=== PATIENT | female | born 1940 | race American Indian/Alaskan Native ===

== ENCOUNTER 2017-01-25 06:30 | Inpatient (IN) | payer MEDICARE ==
[2017-01-22 13:35] VITALS: BMI 23.1
[2017-01-25] MEDS ORDERED: Etomidate 20 mg/10ml Inj IV ONE (07:11)
[2017-01-25] MEDS ORDERED: Succinylcholine 200 mg/10 ml Inj IV ONE (07:11)
[2017-01-25] MEDS ORDERED: Propofol 10 mg/ml Inj (20 ML) ONE (07:11)
--- NOTE | 2017-01-25 07:16 | CP.PCM.HP ---
History of Present Illness - History of Present Illness History of Present Illness: Chief Complaint: severe left hip pain HPI: 76 y/o lady with hx of HTN, Chronic Anemia, CKD Stage III, Renal Stone, Primary OA with hx of Bilat TKR came in for scheduled Left Hip replacement. The patient has had long history of Oseteoarthritis and had Bilat Knee replacement because of this. She has been suffering from severe left hip pain for the past 4 years and has been ambulating with the help of a cane . She had several intra-articular injections and has been seeing a Pain Mgt specialist for her pain. The past few months , her hip pain worsened and despite being on Duragesic patch 75mg, she is still unable to ambulate because of the pain and unable to do most of her daily chores. She went to see Dr Alarcon , imagings were done revealing severe OA . Having failed conservative management, she was advised to have a THR. Patient was worked out pre-op by her PMD as outpt - clearance in the chart. Full COde Surrogate Decision maker: daughter Sasha Present on Admission - Present on Admission Any Indicators Present on Admission: No Review of Systems - Review of Systems All systems: reviewed and no additional remarkable complaints except - Constitutional Constitutional: absent: Fever, Headache - EENT Eyes: Blurred Vision Ears: absent: Ear Discharge, Ear Pain Nose/Mouth/Throat: absent: Nasal Congestion, Nasal Discharge - Cardiovascular Cardiovascular: Edema. absent: Chest Pain, Dyspnea on Exertion - Respiratory Respiratory: absent: Cough, Dyspnea, Dyspnea on Exertion - Gastrointestinal Gastrointestinal: absent: Abdominal Pain, Melena, Nausea, Vomiting - Genitourinary Genitourinary: Hx Renal/Bladder Calculi. absent: Dysuria - Reproductive: Female Reproductive:Female: S/P Hysterectomy - Musculoskeletal Musculoskeletal: Abnormal Gait, Arthralgias, Back Pain, Joint Swelling, Limited Range of Motion, Muscle Cramps - Integumentary Integumentary: absent: Pruritus, Rash, Unusual Bruising - Neurological Neurological: absent: Confusion, Dizziness, Numbness, Headaches - Psychiatric Psychiatric: absent: Depression - Endocrine Endocrine: absent: Polydipsia, Polyphagia, Polyuria - Hematologic/Lymphatic Hematologic: absent: Easy Bleeding, Easy Bruising Past Patient History - Infectious Disease Hx of Infectious Diseases: None - Tetanus Immunizations Tetanus Immunization: Unknown - Past Medical History & Family History Past Medical History?: Yes Past Family History: Reviewed and not pertinent - Past Social History Smoking Status: Never Smoked Chewing Tobacco Use: No Cigar Use: No Alcohol: None Drugs: Denies Home Situation {Lives}: Alone Domestic Violence: Negative - CARDIAC Hx Cardiac Disorders: Yes Hx Hypertension: Yes - PULMONARY Hx Respiratory Disorders: No - NEUROLOGICAL Hx Neurological Disorder: No - HEENT Hx HEENT Problems: Yes Hx Cataracts: Yes - RENAL Hx Chronic Kidney Disease: Yes Hx Kidney Stones: Yes (LEFT) - ENDOCRINE/METABOLIC Hx Endocrine Disorders: No - HEMATOLOGICAL/ONCOLOGICAL Hx Blood Disorders: Yes Hx Anemia: Yes (B12 SHOT ONCE A MONTH) - INTEGUMENTARY Hx Dermatological Problems: No - MUSCULOSKELETAL/RHEUMATOLOGICAL Hx Musculoskeletal Disorders: Yes Hx Arthritis: Yes Hx Back Pain: Yes Hx Osteoarthritis: Yes Hx Rheumatoid Arthritis: Yes Other/Comment: MUSCLE WEAKNESS .LIMIT JOINT MOTION - GASTROINTESTINAL Hx Gastrointestinal Disorders: Yes Hx Gastroesophageal Reflux: Yes (GERD) - GENITOURINARY/GYNECOLOGICAL Hx Genitourinary Disorders: Yes (Hysterectomy,Renal Stone) - PSYCHIATRIC Hx Psychophysiologic Disorder: No - SURGICAL HISTORY Hx Surgeries: Yes Hx Hysterectomy: Yes Hx Joint Replacement: Yes (BOTH KNEE REPLACEMENT) Hx Musculoskeletal Surgery: Yes (BILATERAL BUNION Sx) Other/Comment: Small Intestine Obstruction and Surger 1996. REMOVAL LEFT KIDNEY STONE . Bilat TKR , REVISION RIGHT KNEE X3. INSERTION CANDIDO CATH AND REMOVAL - ANESTHESIA Hx Anesthesia: Yes Hx Anesthesia Reactions: No Hx Malignant Hyperthermia: No Has any member of the family had a problem w/ anesthesia?: No Meds Allergies/Adverse Reactions: Allergies Allergy/AdvReac Type Severity Reaction Status Date / Time acetaminophen [From Percocet] AdvReac PALPITAION Verified 01/22/17 13:36 oxycodone HCl [From Percocet] AdvReac PALPITAION Verified 01/22/17 13:36 GRAVY AdvReac DIARRHEA Uncoded 01/22/17 13:37 Physical Exam - Constitutional Appears: No Acute Distress - Head Exam Head Exam: NORMAL INSPECTION, NORMOCEPHALIC - Eye Exam Eye Exam: EOMI, Normal appearance Pupil Exam: NORMAL ACCOMODATION - ENT Exam ENT Exam: Mucous Membranes Moist, Normal External Ear Exam - Neck Exam Neck exam: Positive for: Full Rom. Negative for: Meningismus - Respiratory Exam Respiratory Exam: NORMAL BREATHING PATTERN. absent: Respiratory Distress - Cardiovascular Exam Cardiovascular Exam: REGULAR RHYTHM, +S1, +S2 - GI/Abdominal Exam GI & Abdominal Exam: Normal Bowel Sounds, Soft. absent: Tenderness Additional comments: old surgical scar small umbilical hernia - Extremities Exam Extremities exam: Positive for: normal capillary refill, pedal pulses present. Negative for: calf tenderness Additional comments: pain on ROM of left Hip and right knee old surgical scars bilat knee - Back Exam Back exam: absent: CVA tenderness (L), CVA tenderness (R) - Neurological Exam Neurological exam: Alert, CN II-XII Intact, Oriented x3, Reflexes Normal - Psychiatric Exam Psychiatric exam: Normal Affect, Normal Mood - Skin Skin Exam: Dry, Normal Color, Warm Results - Labs Labs: reviewed labs done as outpt noted anemia hgb=10 and sl Crea elevation - EKG Data EKG Interpreted by: Myself EKG shows normal: Sinus rhythm - EKG Data When Compared to Previous EKG: No Significant Change Assessment & Plan (1) Primary osteoarthritis involving multiple joints Status: Chronic (2) Left hip pain Status: Chronic (3) Anemia Status: Chronic (4) CKD (chronic kidney disease) stage 3, GFR 30-59 ml/min Status: Chronic (5) HTN (hypertension) Status: Chronic (6) DVT prophylaxis Status: Acute - Assessment and Plan (Free Text) Assessment: 76 y/o lady with hx of HTN, Anemia, CKD, OA, Hx of Bilat TKR, came bec of severe left hip pain, failed outpt conservative mgt and is scheduled for Left THR. (1) Primary osteoarthritis involving multiple joints Status: Chronic Hx of Bilat TKR Pt came with severe left hip pain, pain despite Physical therapy and Pain mgt - on Duragesic patch as outpt and despite these , still with worsening pain. Ortho : Dr Alarcon- plan for Left THR Pre- op eval by her PMD - in chart PT/OT post op DVT proph (2) Left hip pain Status: Chronic as above Pain mgt (3) Anemia, chronic Status: Chronic Hgb= 10.7 long hx of chronic anemia- on Ferrous and B12 shot as outpt Type and Cross 2 units monitor CBC (4) CKD (chronic kidney disease) stage 3, GFR 30-59 ml/min Status: Chronic Crea 1.05 GFR=51 will monitor Crea hx of Renal stones and surgery to remove stone (5) HTN (hypertension) Status: Chronic on HCTZ and Adalat will cont home meds (6) DVT prophylaxis Status: Acute will start anticoag post op Decision To Admit - Pt Status Changed To: Hospital Disposition Of: Inpatient - Admit Certification Admit to Inpatient:: After my assessment, the patient will require hospitalization for at least two midnights. This is because of the severity of symptoms shown, intensity of services needed, and/or the medical risk in this patient being treated as an outpatient. - . Bed Request Type: Med/Surg Admitting Physician: Josee Barahona
[2017-01-25] MEDS ORDERED: Phenylephrine 10 mg/ml Inj ONE (07:54)
[2017-01-25] MEDS ORDERED: Lidocaine 1% Inj (20ml) ONE (07:54)
[2017-01-25] MEDS ORDERED: Bupivacaine 0.5% Inj(30mL) ONE (07:55)
[2017-01-25] MEDS ORDERED: Absorbable Gelatin Sponge Size 100 ONE (07:56)
[2017-01-25] MEDS ORDERED: Sodium Chloride 0.9% 1,000 ML IV ONE ×2 (08:04→10:47)
[2017-01-25] MEDS ORDERED: Rocuronium 10 mg/ml (5 ml) ONE ×2 (08:25→09:17)
[2017-01-25] MEDS ORDERED: Neostigmine Methylsulfate 3mg/3ml Syringe IV ONE (10:22)
[2017-01-25] MEDS ORDERED: Neostigmine Methylsulfate 2 MG/2 ML ML IV ONE (10:22)
[2017-01-25] MEDS: HYDROmorphone 0.5 mg/0.5 ml ISec IVP PRN ×4 (12:15→13:45)
[2017-01-25] MEDS ORDERED: Ergocalciferol 50,000 Intl Units Cap PO SCH (13:00)
[2017-01-25] MEDS ORDERED: HYDROmorphone 0.5 mg/0.5 ml ISec IVP PRN (14:17)
--- NOTE | 2017-01-25 14:35 | RAD ---
PROCEDURE: Left hip dated 12/2016 HISTORY: s/p total hip replacement right. COMPARISON: No prior study available for comparison TECHNIQUE: Single AP portable view of the left hip performed. FINDINGS: . Status post left-sided total hip replacement. Satisfactory alignment. Expected postoperative changes with subcutaneous infiltration, air and overlying subcutaneous skin closure yayo. IMPRESSION: Status post left total hip replacement with satisfactory alignment and expected surrounding postoperative changes as above
--- NOTE | 2017-01-25 14:44 | PCM.SURG1 ---
Surgeon's Initial Post Op Note - Surgeon's Notes Surgeon: Agnes Farm Mechanic Apprentice: YOKASTA Gaines/ 2nd assist Cullen Funez Type of Anesthesia: General Endo, Spinal Anesthesia Administered By: Dr Khoury Pre-Operative Diagnosis: Primary Osteoartheritis l hip ( left) Operative Findings: as above Post-Operative Diagnosis: as above. synovitis L hip joint Operation Performed: L THR ( anterior approach). femoral neck osteotomy. arthrotomy/synovectomy/release iliopsoas tendon. autograft bone graft to acteabulum Specimen/Specimens Removed: bone/cartilage/synovium Estimated Blood Loss: EBL {In ML}: 175 Blood Products Given: FFP Drains Used: No Drains Post-Op Condition: Good Date of Surgery/Procedure: 01/25/17 Time of Surgery/Procedure: 09:45 (time in room/anesthesia indcution time 8:04)
[2017-01-25] MEDS ORDERED: Lactated Ringer's 1,000 ML IV ONE (15:45)
[2017-01-25] MEDS: ceFAZolin 1 GM in Sodium Chloride 0.9% 100 ML IVPB SCH (18:35)
[2017-01-25] MEDS: Sodium Chloride 0.9% 1,000 ML IV SCH (18:45)
--- NOTE | 2017-01-25 19:52 | CARD ---
APPROVED REPORT EKG Measurement Heart [id number] <Conclusion> Normal sinus rhythm Possible septal infarct, age undetermined Abnormal ECG
--- NOTE | 2017-01-25 20:00 | CP.PCM.CON ---
History of Present Illness - History of Present Illness History of Present Illness: THE PATIENT IS A 76 YEAR OLD FEMALE WITH A HISTORY OF SEVERE OA WITH BILATERAL TOTAL KNEE REPLACEMENTS, HYPERTENSION, CRF, GERDS AND ANEMIA. SHE HAD SEVERE LEFT HIP PAIN FOR 4 YEARS AND WAS TREATED WITH ANALGESICS AND ITRAARTICULAR INJECTIONS WITHOUT PAIN RELIEF AND SHE NEEDED A CANE TO AMBULATE. SHE WAS SEEN BY DR JETT AND X-RAYS REVEALED SEVERE OA OF THE LEFT HIP. SHE WAS ADMITTED VIA SAME DAY SURGERY TODAY AND UNDERWENT TOTAL LEFT HIP REPLACEMENT. CARDIOLOGY WAS CALLED TO FOLLOW HER POST-OP. Past Patient History - Infectious Disease Hx of Infectious Diseases: None - Tetanus Immunizations Tetanus Immunization: Unknown - Past Medical History & Family History Past Medical History?: Yes Past Family History: Reviewed and not pertinent - Past Social History Smoking Status: Never Smoked Chewing Tobacco Use: No Cigar Use: No Alcohol: None Drugs: Denies Home Situation {Lives}: Alone Domestic Violence: Negative - CARDIAC Hx Cardiac Disorders: Yes Hx Hypertension: Yes - PULMONARY Hx Respiratory Disorders: No - NEUROLOGICAL Hx Neurological Disorder: No - HEENT Hx HEENT Problems: Yes Hx Cataracts: Yes - RENAL Hx Chronic Kidney Disease: Yes Hx Kidney Stones: Yes (LEFT) - ENDOCRINE/METABOLIC Hx Endocrine Disorders: No - HEMATOLOGICAL/ONCOLOGICAL Hx Blood Disorders: Yes Hx Anemia: Yes (B12 SHOT ONCE A MONTH) - INTEGUMENTARY Hx Dermatological Problems: No - MUSCULOSKELETAL/RHEUMATOLOGICAL Hx Musculoskeletal Disorders: Yes Hx Arthritis: Yes Hx Back Pain: Yes Hx Osteoarthritis: Yes Hx Rheumatoid Arthritis: Yes Other/Comment: MUSCLE WEAKNESS .LIMIT JOINT MOTION - GASTROINTESTINAL Hx Gastrointestinal Disorders: Yes Hx Gastroesophageal Reflux: Yes (GERD) - GENITOURINARY/GYNECOLOGICAL Hx Genitourinary Disorders: Yes (Hysterectomy,Renal Stone) - PSYCHIATRIC Hx Psychophysiologic Disorder: No - SURGICAL HISTORY Hx Surgeries: Yes Hx Hysterectomy: Yes Hx Joint Replacement: Yes (BOTH KNEE REPLACEMENT) Hx Musculoskeletal Surgery: Yes (BILATERAL BUNION Sx) Other/Comment: Small Intestine Obstruction and Surger 1996. REMOVAL LEFT KIDNEY STONE . Bilat TKR , REVISION RIGHT KNEE X3. INSERTION CANDIDO CATH AND REMOVAL - ANESTHESIA Hx Anesthesia: Yes Hx Anesthesia Reactions: No Hx Malignant Hyperthermia: No Has any member of the family had a problem w/ anesthesia?: No Meds Allergies/Adverse Reactions: Allergies Allergy/AdvReac Type Severity Reaction Status Date / Time oxycodone HCl [From Percocet] AdvReac PALPITAION Verified 01/22/17 13:36 GRAVY AdvReac DIARRHEA Uncoded 01/22/17 13:37 - Medications Medications: Current Medications Acetaminophen (Tylenol 325mg Tab) 650 mg PO Q6 PRN PRN Reason: Fever >100.4 F Last Admin: 01/25/17 19:03 Dose: 650 mg Docusate Sodium (Colace) 100 mg PO BID [facility] Last Admin: 01/25/17 18:34 Dose: 100 mg Ergocalciferol (Drisdol 50,000 Intl Units Cap) 1 cap PO QWK [facility] Fentanyl (Duragesic) 1 patch TD Q72 [facility] PRN Reason: Protocol Ferrous Sulfate (Feosol) 325 mg PO DAILY [facility] Hydromorphone HCl (Dilaudid 0.2 Mg/Ml Environmental Project Manager) 0 mg IV PRN PRN; Protocol PRN Reason: Pain, severe (8-10) Last Admin: 01/25/17 14:00 Dose: 0 mg Cefazolin Sodium 1 gm/ Sodium (Chloride) 100 mls @ 100 mls/hr IVPB Q8 [facility] Stop: 01/26/17 01:59 Last Admin: 01/25/17 18:35 Dose: 100 mls/hr Sodium Chloride (Sodium Chloride 0.9%) 1,000 mls @ 70 mls/hr IV .[id number] [facility] Stop: 01/26/17 18:46 Last Admin: 01/25/17 18:45 Dose: 70 mls/hr Multivitamins/Minerals (Therapeutic-M Tab) 1 tab PO DAILY [facility] Valsartan (Diovan) 160 mg PO DAILY [facility] Physical Exam - Respiratory Exam Respiratory Exam: Clear to Auscultation Bilateral - Cardiovascular Exam Cardiovascular Exam: REGULAR RHYTHM, +S1, +S2 - Additional Findings Additional findings: EKG NSR ORTHOPEDIC POST-OP NOTE REVIEWED Results - Vital Signs Recent Vital Signs: Last Vital Signs Temp 100.5 F H 01/25/17 19:03 Pulse 69 01/25/17 17:31 Resp 18 01/25/17 18:09 BP 152/70 H 01/25/17 18:09 Pulse Ox 100 01/25/17 18:09 - Labs Labs: Laboratory Results - last 24 hr 01/25/17 01/25/17 07:07 07:52 Blood Type O POSITIVE Blood Type Confirm O POSITIVE Antibody Screen Negative Crossmatch See Detail BBK History Checked No verified bt Assessment & Plan - Assessment and Plan (Free Text) Assessment: S/P LEFT THR HYPERTENSION CRF ANEMIA Plan: IV ANTIBIOTICS AND VALSARTAN CBC AND BMP IN AM PHYSICAL THERAPY TO SEE
[2017-01-26] MEDS: ceFAZolin 1 GM in Sodium Chloride 0.9% 100 ML IVPB SCH (01:05)
--- NOTE | 2017-01-26 07:32 | CP.PCM.PN ---
Subjective - Date & Time of Evaluation Date of Evaluation: 01/26/17 Time of Evaluation: 07:30 - Subjective Subjective: S- pt comfortable/minimal post op discomfort Objective - Vital Signs/Intake and Output Vital Signs (last 24 hours): Temp Pulse Resp BP Pulse Ox 99.1 F 78 15 132/66 96 01/26/17 05:04 01/26/17 05:04 01/26/17 05:04 01/26/17 05:04 01/26/17 03:01 - Medications Medications: Current Medications Acetaminophen (Tylenol 325mg Tab) 650 mg PO Q6 PRN PRN Reason: Fever >100.4 F Last Admin: 01/25/17 19:03 Dose: 650 mg Docusate Sodium (Colace) 100 mg PO BID [facility] Last Admin: 01/25/17 18:34 Dose: 100 mg Ergocalciferol (Drisdol 50,000 Intl Units Cap) 1 cap PO QWK [facility] Fentanyl (Duragesic) 1 patch TD Q72 [facility] PRN Reason: Protocol Ferrous Sulfate (Feosol) 325 mg PO DAILY [facility] Hydromorphone HCl (Dilaudid 0.2 Mg/Ml Assistant Paralegal) 0 mg IV PRN PRN; Protocol PRN Reason: Pain, severe (8-10) Last Admin: 01/25/17 14:00 Dose: 0 mg Sodium Chloride (Sodium Chloride 0.9%) 1,000 mls @ 70 mls/hr IV .[id number] [facility] Stop: 01/26/17 18:46 Last Admin: 01/25/17 18:45 Dose: 70 mls/hr Multivitamins/Minerals (Therapeutic-M Tab) 1 tab PO DAILY [facility] Valsartan (Diovan) 160 mg PO DAILY [facility] - Additional Findings Additional findings: Obj VSS L hip wound benign n/v intact no gross progressive deficits orthopedicLLY STABLE Assessment and Plan - Assessment and Plan (Free Text) Assessment: a- S./P l thr p ORTRHOPEDICALLY STABLE/FWB AT [facility]
[2017-01-26 07:42] LABS: HEMATOCRIT 31.6 % (34.0-47.0); MEAN CELL VOLUME 82.4 fl (81.0-99.0); MEAN CORPUSCULAR HEMOGLOBIN 26.2 pg (27.0-31.0); MEAN CORPUSCULAR HGB CONC 31.9 g/dL (33.0-37.0); RED CELL DISTRIBUTION WIDTH 17.9 % (11.5-14.5); WHITE BLOOD COUNT 7.5 K/uL (4.8-10.8)
[2017-01-26 07:44] LABS: BLOOD UREA NITROGEN 25 mg/dl (7-17); CALCIUM 8.4 mg/dL (8.4-10.2); CARBON DIOXIDE 21 mmol/L (22-30); CHLORIDE 105 mmol/L (98-107); GFR AFRICAN-AMERICAN > 60; GLUCOSE,RANDOM 94 mg/dL (65-105); POTASSIUM 3.5 MMOL/L (3.6-5.0); SODIUM 139 mmol/l (132-148)
[2017-01-26] MEDS ORDERED: Potassium Chloride 20 mEq ER Tab PO ONE (08:03)
--- NOTE | 2017-01-26 09:17 | CP.PCM.PN ---
Subjective - Date & Time of Evaluation Date of Evaluation: 01/26/17 Time of Evaluation: 08:00 - Subjective Subjective: NO CHEST PAIN OR SOB Objective - Vital Signs/Intake and Output Vital Signs (last 24 hours): Temp Pulse Resp BP Pulse Ox 99.3 F 99 H 20 137/81 99 01/26/17 08:37 01/26/17 08:37 01/26/17 08:37 01/26/17 08:37 01/26/17 08:37 - Medications Medications: Current Medications Acetaminophen (Tylenol 325mg Tab) 650 mg PO Q6 PRN PRN Reason: Fever >100.4 F Last Admin: 01/25/17 19:03 Dose: 650 mg Aspirin (Ecotrin) 81 mg PO BID [facility] Docusate Sodium (Colace) 100 mg PO BID [facility] Last Admin: 01/25/17 18:34 Dose: 100 mg Ergocalciferol (Drisdol 50,000 Intl Units Cap) 1 cap PO QWK [facility] Fentanyl (Duragesic) 1 patch TD Q72 [facility] PRN Reason: Protocol Ferrous Sulfate (Feosol) 325 mg PO DAILY [facility] Hydromorphone HCl (Dilaudid 0.2 Mg/Ml Office Machine Servicer Apprentice) 0 mg IV PRN PRN; Protocol PRN Reason: Pain, severe (8-10) Last Admin: 01/26/17 09:10 Dose: 6 mg Sodium Chloride (Sodium Chloride 0.9%) 1,000 mls @ 70 mls/hr IV .[id number] [facility] Stop: 01/26/17 18:46 Last Admin: 01/25/17 18:45 Dose: 70 mls/hr Multivitamins/Minerals (Therapeutic-M Tab) 1 tab PO DAILY [facility] Valsartan (Diovan) 160 mg PO DAILY [facility] - Labs Labs: 01/26/17 05:45 01/26/17 05:45 - Respiratory Exam Respiratory Exam: Clear to Ausculation Bilateral - Cardiovascular Exam Cardiovascular Exam: REGULAR RHYTHM, +S1, +S2 Assessment and Plan - Assessment and Plan (Free Text) Assessment: S/P LEFT THR HYPERTENSION CRF Plan: CONTINUE ASPIRIN AND VALSARTAM FOR REHAB
[2017-01-26] MEDS ORDERED: Oxycodone/Acetaminophen 5/325 mg Tab PO PRN (09:37)
--- NOTE | 2017-01-26 10:22 | OP ---
PROCEDURE DATE: 01/25/2017 PREOPERATIVE DIAGNOSIS: Primary osteoarthritis, left hip. POSTOPERATIVE DIAGNOSIS: Primary osteoarthritis, left hip. PROCEDURES: 1. Left total hip replacement arthroplasty. 2. Femoral neck osteotomy. 3. Release of iliopsoas tendon. 4. Autograft bone graft. 5. Arthrotomy, synovectomy of the hip joint. SPECIMENS REMOVED: Bone, cartilage, synovium. BLOOD LOSS: Approximately 175 mL. BLOOD PRODUCTS GIVEN: One unit of packed cells. COMPLICATIONS: None. DRAINS: None. OPERATIVE INDICATION: The patient is a 76-year-old woman who presents with severe pain and restricte d range of motion of the left hip. The patient is status post bilateral total knee replacement, is w ell known to my practice. The patient has been having increasing pain in the area of the left hip. Pros, cons, risks and benefits of surgical approach were discussed. The possibility of mechanical fa ilure, infection, thromboembolic disease, secondary or even tertiary surgery is discussed. The patie nt can no longer stand the discomfort and wished the surgery to be accomplished. After having obtained informed consent in the above fashion, after having identified side, site and p rocedure and a critical pause/timeout, after the satisfactory induction of the anesthetic, the patien t identified as Sudhir Castillo, in the supine position with all bony prominences well padded, the left lower extremity is placed in the AMIS positioner, traction positioner and the left lower extrem ity is prepped and draped in the usual fashion for anterior approach hip surgery. After sterilely pr epping and draping, after having obtained informed consent, after the satisfactory induction of spina l and general anesthesia, after having identified side, site and procedure and a critical pause/timeo ut, after sterilely prepping and draping under the surgeon's direction, the fluoroscope is positioned . Video images are generated and therapeutic decisions are made there from. After sterilely preppin g and draping and after reviewing the intraoperative x-ray and after planning carefully the femoral n rashawn osteotomy because of the preexisting leg length inequality, an incision is described 1 fingerbrea dth distal to the anterior superior iliac spine, 3 fingerbreadths posterior and 5 fingerbreadths dist al. This is superficial to the tensor fascia, femoris muscle and the skin incision is carried down t hrough the skin and subcutaneous tissue. The fascia is divided. The digastric tensor fascia femoris muscle is taken down. The retractor is placed. The fascia posterior to the rectus femoris is devel oped and the rectus femoris is reflected also with the Darian retractor. At this point in dm e, the fascia is in evidence. Top of the neck is palpated. The fascia is carefully divided. The an terior branch of the lateral femoral circumflex vessels are identified and these are controlled with Aquamantys and with ligature. This having been accomplished, a capsulotomy is accomplished to the in ferior aspect of the neck and it is elevated in a triangular type fashion, tagged with a stay suture and at this point in time with the leg having been in external rotation and internal rotation for dev elopment of the capsular flap and then internal rotation and then external rotation. The flap having been elevated, the femoral neck osteotomy having been carefully planned at a point starting at the s addle of the hip at a point approximately 1 fingerbreadth above the lesser trochanter, the femoral ne ck osteotomy is accomplished. This having been accomplished, the traction is turned to 45 degrees. Retractor is used to expose the femoral neck. The ____ is placed. The femoral head and neck are rem eneida. This having been accomplished, the acetabulum is exposed. The labrum is excised. Arthrotomy and synovectomy are accomplished. It should be noted that, because of the leg length inequality, the femoral neck osteotomy is planned both preoperatively and virtually intraoperatively with portable x -rays. The femoral neck osteotomy, because of the complexity, is a separate billing code. At this p oint in time, arthrotomy and synovectomy are accomplished. The pulvinar is excised. The acetabulum is exposed with the C retractor and with the modified Charnley retractor in the capsule. This having been accomplished, the pulvinar is exposed. Extensive synovectomy is accomplished. Reaming is acco mplished to 50 mm in approximately 40 degrees of abduction and 20 degrees of anteversion. Reaming krishnamurthy ving been accomplished, the reamings are denuded of articular cartilage and this having been accompli shed, the 50 trial is found to be excellent and the 50 Medacta cup is impacted after autograft bone g rafting. The reamings denuded of articular cartilage are used to autograft bone graft the acetabulum . The cup is impacted. Attention is now turned to the femur. With the limb in 90 degrees of patient relations manager al rotation, the pubofemoral ligament is identified. The pubofemoral ligament is released and great care is taken to release the ischial femoral ligament and the iliofemoral ligament. This having been accomplished, the femur is found to be mobile. With the pitchfork retractor, the femoral neck is ex posed. With external rotation to another 2 clicks and with flexion and abduction, the femur is expos ed. The bridge of bone between the neck and the trochanter removed, the rasp is introduced. Sequent ial broaching is accomplished for a #2 femoral component and is found to be excellent with a neutral head standard 28 mm and a 50 mm outer bearing. This having been accomplished, the iliopsoas tendon i s identified and released because of the contracture and this having been accomplished, hemostasis co ntrolled with the Aquamantys. The cup having been placed and bone grafted, osteophytes around the cu p are debrided and at this point in time, the femoral stem is introduced with the neutral head cerami c and 50 mm outer bearing. The hip is reduced, found to be stable in all planes. The wound is thoro ughly irrigated. Blood loss approximately 175 mL. One unit of packed cells was given and closure of the fascia is with 0 Quill followed by 0 Quill, Vicryl, and yayo for skin. A compression dressin g is applied. Jeremiah Alarcon MD cc: [id number] TT: 01/26/2017 10:21:34 in
[2017-01-26] MEDS: Sodium Chloride 0.9% 1,000 ML IV SCH (10:30)
[2017-01-26] MEDS: Multivitamin With Minerals Tab PO SCH (11:58)
--- NOTE | 2017-01-26 12:20 | CP.PCM.PN ---
Subjective - Date & Time of Evaluation Date of Evaluation: 01/26/17 Time of Evaluation: 12:00 - Subjective Subjective: low grade fever last night Pain controlled on SCREENING [employer]ISTERED NURSE pump and Fentanyl patch denies CP no SOB no abd pain Objective - Vital Signs/Intake and Output Vital Signs (last 24 hours): Temp Pulse Resp BP Pulse Ox 99.3 F 99 H 20 137/81 99 01/26/17 08:37 01/26/17 08:37 01/26/17 08:37 01/26/17 08:37 01/26/17 08:37 - Medications Medications: Current Medications Acetaminophen (Tylenol 325mg Tab) 650 mg PO Q6 PRN PRN Reason: Fever >100.4 F Last Admin: 01/25/17 19:03 Dose: 650 mg Aspirin (Ecotrin) 81 mg PO BID [facility] Last Admin: 01/26/17 09:42 Dose: 81 mg Docusate Sodium (Colace) 100 mg PO BID [facility] Last Admin: 01/26/17 09:42 Dose: 100 mg Ergocalciferol (Drisdol 50,000 Intl Units Cap) 1 cap PO QWK [facility] Fentanyl (Duragesic) 1 patch TD Q72 [facility] PRN Reason: Protocol Ferrous Sulfate (Feosol) 325 mg PO DAILY [facility] Last Admin: 01/26/17 11:58 Dose: 325 mg Hydromorphone HCl (Dilaudid 0.2 Mg/Ml Um Nurse) 0 mg IV PRN PRN; Protocol PRN Reason: Pain, severe (8-10) Last Admin: 01/26/17 09:10 Dose: 6 mg Hydromorphone HCl (Dilaudid) 4 mg PO Q4 PRN PRN Reason: Pain, severe (8-10) Hydromorphone HCl (Dilaudid) 2 mg PO Q4 PRN PRN Reason: Pain, moderate (4-7) Last Admin: 01/26/17 10:29 Dose: 2 mg Sodium Chloride (Sodium Chloride 0.9%) 1,000 mls @ 70 mls/hr IV .[id number] [facility] Stop: 01/26/17 18:46 Last Admin: 01/26/17 10:30 Dose: 70 mls/hr Multivitamins/Minerals (Therapeutic-M Tab) 1 tab PO DAILY [facility] Last Admin: 01/26/17 11:58 Dose: 1 tab Pregabalin (Lyrica) 50 mg PO BID [facility] Last Admin: 01/26/17 11:57 Dose: 50 mg Valsartan (Diovan) 160 mg PO DAILY [facility] Last Admin: 01/26/17 09:43 Dose: 160 mg - Labs Labs: 01/26/17 05:45 01/26/17 05:45 - Constitutional Appears: No Acute Distress - Head Exam Head Exam: NORMAL INSPECTION, NORMOCEPHALIC - Eye Exam Eye Exam: EOMI, Normal appearance Pupil Exam: NORMAL ACCOMODATION - ENT Exam ENT Exam: Mucous Membranes Moist, Normal External Ear Exam - Neck Exam Neck Exam: Full ROM. absent: Meningismus - Respiratory Exam Respiratory Exam: NORMAL BREATHING PATTERN. absent: Respiratory Distress - Cardiovascular Exam Cardiovascular Exam: REGULAR RHYTHM, +S1, +S2 - GI/Abdominal Exam GI & Abdominal Exam: Soft, Normal Bowel Sounds. absent: Tenderness - Extremities Exam Extremities Exam: Normal Capillary Refill. absent: Calf Tenderness Additional comments: left hip surgical wound with dressing intact - Back Exam Back Exam: Full ROM. absent: CVA tenderness (L), CVA tenderness (R) - Neurological Exam Neurological Exam: Alert, Awake, CN II-XII Intact, Oriented x3 - Psychiatric Exam Psychiatric exam: Normal Affect, Normal Mood - Skin Skin Exam: Dry, Normal Color, Warm Assessment and Plan (1) Primary osteoarthritis involving multiple joints Status: Chronic (2) Left hip pain Status: Chronic (3) Anemia Status: Chronic (4) CKD (chronic kidney disease) stage 3, GFR 30-59 ml/min Status: Chronic (5) HTN (hypertension) Status: Chronic (6) DVT prophylaxis Status: Acute - Assessment and Plan (Free Text) Assessment: 76 y/o lady with hx of HTN, Anemia, CKD, OA, Hx of Bilat TKR, came bec of severe left hip pain, failed outpt conservative mgt and is scheduled for Left THR. (1) Primary osteoarthritis involving multiple joints jv left hip Status: Chronic Hx of Bilat TKR Pt came with severe left hip pain, pain despite Physical therapy and Pain mgt - on Duragesic patch as outpt and despite these , still with worsening pain. Ortho : Dr Alarcon- THR , left done Pre- op eval by her PMD - in chart PT/OT DVT proph (2)s/p left THR Status: Chronic as above Pain mgt- pt was on Fentanyl patch at home ( 75mcg) PT/OT consulted- plan for SUZAN in am (3) Anemia, chronic , and mild acute blood loss anemia post op Status: Chronic Hgb= 10.7 ( outpt) now 10.1 long hx of chronic anemia- on Ferrous and B12 shot as outpt was transfused 1 unit in OR monitor CBC (4) CKD (chronic kidney disease) stage 3, GFR 30-59 ml/min Status: Chronic Crea 1.05 GFR=51 ( labs outpt) will monitor Crea hx of Renal stones and surgery to remove stone (5) HTN (hypertension) Status: Chronic on HCTZ and Avapro at home will start Losaratn (6) DVT prophylaxis Status: Acute ASA 81 mg bid received Ancef x 3 doses
--- NOTE | 2017-01-26 13:15 | CP.PCM.PN ---
Objective - Vital Signs/Intake and Output Vital Signs (last 24 hours): Temp Pulse Resp BP Pulse Ox 99.3 F 99 H 20 137/81 99 01/26/17 08:37 01/26/17 08:37 01/26/17 08:37 01/26/17 08:37 01/26/17 08:37 - Medications Medications: Current Medications Acetaminophen (Tylenol 325mg Tab) 650 mg PO Q6 PRN PRN Reason: Fever >100.4 F Last Admin: 01/25/17 19:03 Dose: 650 mg Aspirin (Ecotrin) 81 mg PO BID [facility] Last Admin: 01/26/17 09:42 Dose: 81 mg Docusate Sodium (Colace) 100 mg PO BID [facility] Last Admin: 01/26/17 09:42 Dose: 100 mg Ergocalciferol (Drisdol 50,000 Intl Units Cap) 1 cap PO QWK [facility] Fentanyl (Duragesic) 1 patch TD Q72 PRATEEK PRN Reason: Protocol Ferrous Sulfate (Feosol) 325 mg PO DAILY [facility] Last Admin: 01/26/17 11:58 Dose: 325 mg Hydromorphone HCl (Dilaudid 0.2 Mg/Ml Cable Armorer) 0 mg IV PRN PRN; Protocol PRN Reason: Pain, severe (8-10) Last Admin: 01/26/17 09:10 Dose: 6 mg Hydromorphone HCl (Dilaudid) 4 mg PO Q4 PRN PRN Reason: Pain, severe (8-10) Hydromorphone HCl (Dilaudid) 2 mg PO Q4 PRN PRN Reason: Pain, moderate (4-7) Last Admin: 01/26/17 10:29 Dose: 2 mg Sodium Chloride (Sodium Chloride 0.9%) 1,000 mls @ 70 mls/hr IV .[id number] [facility] Stop: 01/26/17 18:46 Last Admin: 01/26/17 10:30 Dose: 70 mls/hr Multivitamins/Minerals (Therapeutic-M Tab) 1 tab PO DAILY [facility] Last Admin: 01/26/17 11:58 Dose: 1 tab Pregabalin (Lyrica) 50 mg PO BID [facility] Last Admin: 01/26/17 11:57 Dose: 50 mg Valsartan (Diovan) 160 mg PO DAILY [facility] Last Admin: 01/26/17 09:43 Dose: 160 mg - Labs Labs: 01/26/17 05:45 01/26/17 05:45 Assessment and Plan (1) Primary osteoarthritis involving multiple joints Status: Chronic (2) Left hip pain Status: Chronic (3) Anemia Status: Chronic (4) CKD (chronic kidney disease) stage 3, GFR 30-59 ml/min Status: Chronic (5) HTN (hypertension) Status: Chronic (6) DVT prophylaxis Status: Acute
--- NOTE | 2017-01-26 15:31 | RAD ---
PROCEDURE: Fluoroscopy up to 1 hr. HISTORY: FLUORO COMPARISON: None TECHNIQUE: Standard protocol for this study/examination. FINDINGS: Submitted images from the current procedure: Greater than 10 IMPRESSION: Less than 1 hr fluoroscopic time utilized during performance of the procedure.
[2017-01-27 08:13] LABS: HEMATOCRIT 27.1 % (34.0-47.0); MEAN CELL VOLUME 82.4 fl (81.0-99.0); MEAN CORPUSCULAR HEMOGLOBIN 26.4 pg (27.0-31.0); MEAN CORPUSCULAR HGB CONC 32.1 g/dL (33.0-37.0); RED CELL DISTRIBUTION WIDTH 17.8 % (11.5-14.5); WHITE BLOOD COUNT 7.6 K/uL (4.8-10.8)
[2017-01-27 08:21] LABS: BLOOD UREA NITROGEN 30 mg/dl (7-17); CALCIUM 8.5 mg/dL (8.4-10.2); CARBON DIOXIDE 23 mmol/L (22-30); CHLORIDE 104 mmol/L (98-107); GFR AFRICAN-AMERICAN > 60; GLUCOSE,RANDOM 104 mg/dL (65-105); POTASSIUM 4.1 MMOL/L (3.6-5.0); SODIUM 137 mmol/l (132-148)
[2017-01-27] MEDS: Multivitamin With Minerals Tab PO SCH (08:49)
--- NOTE | 2017-01-27 09:59 | CP.PCM.PN ---
Subjective - Date & Time of Evaluation Date of Evaluation: 01/27/17 Time of Evaluation: 09:10 - Subjective Subjective: NO CHEST PAIN OR SOB Objective - Vital Signs/Intake and Output Vital Signs (last 24 hours): Temp Pulse Resp BP Pulse Ox 99.4 F 82 20 110/56 L 100 01/27/17 08:16 01/27/17 08:16 01/27/17 08:16 01/27/17 08:16 01/27/17 08:16 - Medications Medications: Current Medications Acetaminophen (Tylenol 325mg Tab) 650 mg PO Q6 PRN PRN Reason: Fever >100.4 F Last Admin: 01/26/17 20:18 Dose: 650 mg Aspirin (Ecotrin) 81 mg PO BID [facility] Last Admin: 01/27/17 08:49 Dose: 81 mg Docusate Sodium (Colace) 100 mg PO BID [facility] Last Admin: 01/27/17 08:48 Dose: 100 mg Ergocalciferol (Drisdol 50,000 Intl Units Cap) 1 cap PO QWK [facility] Fentanyl (Duragesic) 1 patch TD Q72 [facility] PRN Reason: Protocol Ferrous Sulfate (Feosol) 325 mg PO DAILY [facility] Last Admin: 01/27/17 08:49 Dose: 325 mg Hydromorphone HCl (Dilaudid) 4 mg PO Q4 PRN PRN Reason: Pain, severe (8-10) Hydromorphone HCl (Dilaudid) 2 mg PO Q4 PRN PRN Reason: Pain, moderate (4-7) Last Admin: 01/26/17 10:29 Dose: 2 mg Multivitamins/Minerals (Therapeutic-M Tab) 1 tab PO DAILY [facility] Last Admin: 01/27/17 08:49 Dose: 1 tab Pregabalin (Lyrica) 50 mg PO BID [facility] Last Admin: 01/27/17 08:51 Dose: 50 mg Valsartan (Diovan) 160 mg PO DAILY [facility] Last Admin: 01/27/17 08:49 Dose: 160 mg - Labs Labs: 01/27/17 05:55 01/27/17 05:55 - Respiratory Exam Respiratory Exam: Clear to Ausculation Bilateral - Cardiovascular Exam Cardiovascular Exam: REGULAR RHYTHM, +S1, +S2 Assessment and Plan - Assessment and Plan (Free Text) Assessment: S/P LEFT HIP SURGERY HYPERTENSION Plan: CONTINUE DIOVAN AND ASA
--- NOTE | 2017-01-27 14:09 | CP.PCM.PN ---
Subjective - Date & Time of Evaluation Date of Evaluation: 01/27/17 Time of Evaluation: 14:00 - Subjective Subjective: Patient seen and examined. Sitting in chair in NAD. Feeling sleepy and cold. Pain to left hip is controlled. Able to participate with PT today. Hemodynamically stable, afebrile. No acute issues overnight. Off [employer] pump Objective - Vital Signs/Intake and Output Vital Signs (last 24 hours): Temp Pulse Resp BP Pulse Ox 99.4 F 82 20 110/56 L 100 01/27/17 08:16 01/27/17 08:16 01/27/17 08:16 01/27/17 08:16 01/27/17 08:16 - Medications Medications: Current Medications Acetaminophen (Tylenol 325mg Tab) 650 mg PO Q6 PRN PRN Reason: Fever >100.4 F Last Admin: 01/26/17 20:18 Dose: 650 mg Aspirin (Ecotrin) 81 mg PO BID [facility] Last Admin: 01/27/17 08:49 Dose: 81 mg Docusate Sodium (Colace) 100 mg PO BID [facility] Last Admin: 01/27/17 08:48 Dose: 100 mg Ergocalciferol (Drisdol 50,000 Intl Units Cap) 1 cap PO QWK [facility] Fentanyl (Duragesic) 1 patch TD Q72 [facility] PRN Reason: Protocol Last Admin: 01/27/17 11:04 Dose: 1 patch Ferrous Sulfate (Feosol) 325 mg PO DAILY [facility] Last Admin: 01/27/17 08:49 Dose: 325 mg Multivitamins/Minerals (Therapeutic-M Tab) 1 tab PO DAILY [facility] Last Admin: 01/27/17 08:49 Dose: 1 tab Pregabalin (Lyrica) 50 mg PO BID [facility] Last Admin: 01/27/17 08:51 Dose: 50 mg Valsartan (Diovan) 160 mg PO DAILY [facility] Last Admin: 01/27/17 08:49 Dose: 160 mg - Labs Labs: 01/27/17 05:55 01/27/17 05:55 - Constitutional Appears: Non-toxic, No Acute Distress - Head Exam Head Exam: ATRAUMATIC, NORMAL INSPECTION, NORMOCEPHALIC - Eye Exam Eye Exam: EOMI, Normal appearance, PERRL Pupil Exam: NORMAL ACCOMODATION - ENT Exam ENT Exam: Mucous Membranes Moist, Normal Exam - Neck Exam Neck Exam: Full ROM, Normal Inspection - Respiratory Exam Respiratory Exam: Clear to Ausculation Bilateral, NORMAL BREATHING PATTERN. absent: Rales, Rhonchi, Wheezes - Cardiovascular Exam Cardiovascular Exam: REGULAR RHYTHM, RRR, +S1, +S2. absent: JVD - GI/Abdominal Exam GI & Abdominal Exam: Soft, Normal Bowel Sounds. absent: Distended, Guarding, Tenderness, Rebound - Rectal Exam Rectal Exam: Deferred - Extremities Exam Extremities Exam: Normal Capillary Refill, Normal Inspection. absent: Calf Tenderness, Pedal Edema Additional comments: left anterior hip dressing in place - Back Exam Back Exam: NORMAL INSPECTION - Neurological Exam Neurological Exam: Alert, Awake, CN II-XII Intact, Oriented x3 - Psychiatric Exam Psychiatric exam: Normal Affect - Skin Skin Exam: Dry, Intact, Warm Assessment and Plan - Assessment and Plan (Free Text) Assessment: 76 y/o lady with hx of HTN, Anemia, CKD, OA, Hx of Bilat TKR, came because of severe left hip pain. She failed outpatient conservative management and underwent Left THR.At present POD 2 and doing well. 1.s/p left THR s/p Total left hip replacement POD #2- by Dr Rivas off [employer] pump and pain is controlled Continue Duragesic patch participating with PT today PT/OT eval appreciated .Patient will benefit from rehab DVT proph 2.Primary osteoarthritis involving multiple joints History bilateral knee replacements and now left hip replacement 3 Anemia, chronic , and mild acute blood loss anemia post op Hgb dropped from = 10.7 to 8.7 long hx of chronic anemia- on Ferrous and B12 shot as outpt was transfused 1 unit in OR monitor CBC 4. CKD (chronic kidney disease) stage 3, GFR 30-59 ml/min Chronic, stable GFR=51 hx of Renal stones and surgery to remove stone 5. HTN (hypertension) Chronic, controlled on HCTZ and Avapro at home started Irvingaragomezn (6) DVT prophylaxis Acute ASA 81 mg bid received Ancef x 3 doses
[2017-01-28 07:38] LABS: MEAN CELL VOLUME 82.4 fl (81.0-99.0); MEAN CORPUSCULAR HEMOGLOBIN 26.9 pg (27.0-31.0); MEAN CORPUSCULAR HGB CONC 32.6 g/dL (33.0-37.0); RED CELL DISTRIBUTION WIDTH 17.7 % (11.5-14.5); WHITE BLOOD COUNT 7.1 K/uL (4.8-10.8)
[2017-01-28] MEDS: Multivitamin With Minerals Tab PO SCH (09:59)
--- NOTE | 2017-01-28 11:01 | CP.PCM.PN ---
Subjective - Date & Time of Evaluation Date of Evaluation: 01/28/17 Time of Evaluation: 10:15 - Subjective Subjective: NO CHEST PAIN OR SOB Objective - Vital Signs/Intake and Output Vital Signs (last 24 hours): Temp Pulse Resp BP Pulse Ox 98.8 F 72 20 93/55 L 96 01/28/17 07:56 01/28/17 07:56 01/28/17 07:56 01/28/17 07:56 01/28/17 07:56 - Medications Medications: Current Medications Acetaminophen (Tylenol 325mg Tab) 650 mg PO Q6 PRN PRN Reason: Fever >100.4 F Last Admin: 01/27/17 21:18 Dose: 650 mg Aspirin (Ecotrin) 81 mg PO BID [facility] Last Admin: 01/28/17 09:58 Dose: Not Given Docusate Sodium (Colace) 100 mg PO BID [facility] Last Admin: 01/28/17 09:57 Dose: 100 mg Ergocalciferol (Drisdol 50,000 Intl Units Cap) 1 cap PO QWK [facility] Fentanyl (Duragesic) 1 patch TD Q72 [facility] PRN Reason: Protocol Last Admin: 01/27/17 11:04 Dose: 1 patch Ferrous Sulfate (Feosol) 325 mg PO DAILY [facility] Last Admin: 01/27/17 08:49 Dose: 325 mg Multivitamins/Minerals (Therapeutic-M Tab) 1 tab PO DAILY [facility] Last Admin: 01/28/17 09:59 Dose: 1 tab Pregabalin (Lyrica) 50 mg PO BID [facility] Last Admin: 01/28/17 10:01 Dose: 50 mg Tramadol HCl (Ultram) 100 mg PO Q6 PRN PRN Reason: Pain, severe (8-10) Last Admin: 01/27/17 21:00 Dose: 100 mg Tramadol HCl (Ultram) 50 mg PO Q6 PRN PRN Reason: Pain, moderate (4-7) Valsartan (Diovan) 160 mg PO DAILY [facility] Last Admin: 01/28/17 09:57 Dose: Not Given - Labs Labs: 01/28/17 05:40 01/27/17 05:55 - Respiratory Exam Respiratory Exam: Clear to Ausculation Bilateral - Cardiovascular Exam Cardiovascular Exam: REGULAR RHYTHM, +S1, +S2 Assessment and Plan - Assessment and Plan (Free Text) Assessment: LEFT HIP REPLACEMENT HYPERTENSION Plan: CONDTINUE ASPIRIN, DIOVAN AND IRON FOR REHAB
--- NOTE | 2017-01-28 11:09 | CP.PCM.PN ---
Subjective - Date & Time of Evaluation Date of Evaluation: 01/28/17 Time of Evaluation: 11:05 - Subjective Subjective: S- pt with MINIMAQL L hip post op discomfort Objective - Vital Signs/Intake and Output Vital Signs (last 24 hours): Temp Pulse Resp BP Pulse Ox 98.8 F 72 20 93/55 L 96 01/28/17 07:56 01/28/17 07:56 01/28/17 07:56 01/28/17 07:56 01/28/17 07:56 - Medications Medications: Current Medications Acetaminophen (Tylenol 325mg Tab) 650 mg PO Q6 PRN PRN Reason: Fever >100.4 F Last Admin: 01/27/17 21:18 Dose: 650 mg Aspirin (Ecotrin) 81 mg PO BID [facility] Last Admin: 01/28/17 09:58 Dose: Not Given Docusate Sodium (Colace) 100 mg PO BID [facility] Last Admin: 01/28/17 09:57 Dose: 100 mg Ergocalciferol (Drisdol 50,000 Intl Units Cap) 1 cap PO QWK [facility] Fentanyl (Duragesic) 1 patch TD Q72 [facility] PRN Reason: Protocol Last Admin: 01/27/17 11:04 Dose: 1 patch Ferrous Sulfate (Feosol) 325 mg PO DAILY [facility] Last Admin: 01/27/17 08:49 Dose: 325 mg Multivitamins/Minerals (Therapeutic-M Tab) 1 tab PO DAILY [facility] Last Admin: 01/28/17 09:59 Dose: 1 tab Pregabalin (Lyrica) 50 mg PO BID [facility] Last Admin: 01/28/17 10:01 Dose: 50 mg Tramadol HCl (Ultram) 100 mg PO Q6 PRN PRN Reason: Pain, severe (8-10) Last Admin: 01/27/17 21:00 Dose: 100 mg Tramadol HCl (Ultram) 50 mg PO Q6 PRN PRN Reason: Pain, moderate (4-7) Valsartan (Diovan) 160 mg PO DAILY [facility] Last Admin: 01/28/17 09:57 Dose: Not Given - Labs Labs: 01/28/17 05:40 01/27/17 05:55 - Skin Additional comments: Objectgive stance/gait- defrred \hip dressiing dry and intact N/V intact orthopedically stable Assessment and Plan - Assessment and Plan (Free Text) Assessment: A- successful L THR P- orthopedically stable/awaitng rehabtransfer
--- NOTE | 2017-01-28 16:15 | CP.PCM.DIS ---
Provider - Provider Date of Admission: 01/25/17 13:00 Attending physician: Josee Barahona MD Primary care physician: Jeremiah Alarcon III, MD Consults: Ortho consult PT/OT consult cardio consult Time Spent in preparation of Discharge (in minutes): 15 Hospital Course - Lab Results Lab Results: Most Recent Lab Values WBC 7.1 K/uL (4.8-10.8) 01/28/17 05:40 RBC 2.91 Mil/uL (3.80-5.20) L 01/28/17 05:40 Hgb 7.8 g/dL (12.0-16.0) L 01/28/17 05:40 Hct 24.0 % (34.0-47.0) L 01/28/17 05:40 MCV 82.4 fl (81.0-99.0) 01/28/17 05:40 MCH 26.9 pg (27.0-31.0) L 01/28/17 05:40 MCHC 32.6 g/dL (33.0-37.0) L 01/28/17 05:40 RDW 17.7 % (11.5-14.5) H 01/28/17 05:40 Plt Count 182 K/uL (130-400) 01/28/17 05:40 Sodium 137 mmol/l (132-148) 01/27/17 05:55 Potassium 4.1 MMOL/L (3.6-5.0) 01/27/17 05:55 Chloride 104 mmol/L (98-107) 01/27/17 05:55 Carbon Dioxide 23 mmol/L (22-30) 01/27/17 05:55 Anion Gap 14 (10-20) 01/27/17 05:55 BUN 30 mg/dl (7-17) H 01/27/17 05:55 Creatinine 1.0 mg/dL (0.7-1.2) 01/27/17 05:55 Est GFR ( Amer) > 60 01/27/17 05:55 Est GFR (Non-Af Amer) 54 01/27/17 05:55 Random Glucose 104 mg/dL (65-105) 01/27/17 05:55 Calcium 8.5 mg/dL (8.4-10.2) 01/27/17 05:55 Blood Type O POSITIVE 01/28/17 12:00 Blood Type Confirm O POSITIVE 01/25/17 07:52 Antibody Screen Negative 01/28/17 12:00 Crossmatch See Detail 01/28/17 12:00 BBK History Checked Patient has bt 01/28/17 12:00 - Hospital Course Hospital Course: 76 y/o lady with hx of HTN, Anemia, CKD, OA, Hx of Bilat TKR, came because of severe left hip pain. She failed outpatient conservative management and underwent Left THR.At present POD 3 and doing well. pain management was consulted post oip ands patient started on Tramadol PRN for pain ,Fentanyl patch and Lyrica. She developed acute blood loss anemia post op with some weakness . Hgb drooped from 10 to 7.8 so patient decided with 1 unit PRBC. Patient cleraed for discharge by ortho. Will d/c to [facility] for continuation of PT Ptaient to follow up with Dr. Alarcon out patient . 1.s/p left THR s/p Total left hip replacement POD #3- by Dr Rivas off [employer] pump and pain is controlled with Fentanyl patch, Tramadol PRN and lyrica participating with PT PT/OT eval appreciated .Patient will benefit from rehab D/c to [facility] today DVT proph with ASa 81 mg po BID as per ortho 2.Primary osteoarthritis involving multiple joints History bilateral knee replacements and now left hip replacement 3 Anemia, chronic , and mild acute blood loss anemia post op Hgb dropped from = 10.7 to 7.8 long hx of chronic anemia- on Ferrous and B12 shot as outpt transfused 1 unit in OR and also 1 unit today before discharge to [facility] 4. CKD (chronic kidney disease) stage 3, GFR 30-59 ml/min Chronic, stable GFR=51 hx of Renal stones and surgery to remove stone D/c HCTZ 5. HTN (hypertension) Chronic, controlled on HCTZ and Avapro at home Resume Avapro on discharge and hold HCTZ (6) DVT prophylaxis Acute ASA 81 mg bid received Ancef x 3 doses Discharge Exam - Head Exam Head Exam: ATRAUMATIC, NORMAL INSPECTION, NORMOCEPHALIC - Eye Exam Eye Exam: EOMI, Normal appearance, PERRL Pupil Exam: NORMAL ACCOMODATION - ENT Exam ENT Exam: Mucous Membranes Moist, Normal Exam - Neck Exam Neck exam: Full Rom, Normal Inspection - Respiratory Exam Respiratory Exam: Clear to PA & Lateral, NORMAL BREATHING PATTERN. absent: Rales, Rhonchi, Wheezes - Cardiovascular Exam Cardiovascular Exam: REGULAR RHYTHM, RRR, +S1, +S2. absent: JVD - GI/Abdominal Exam GI & Abdominal Exam: Normal Bowel Sounds, Soft. absent: Distended, Guarding, Rebound, Tenderness - Rectal Exam Rectal Exam: Deferred - Extremities Exam Extremities exam: normal inspection, pedal pulses present Additional comments: left hip surgical incision with dressing in place - Back Exam Back exam: NORMAL INSPECTION - Neurological Exam Neurological exam: Alert, CN II-XII Intact, Oriented x3 - Psychiatric Exam Psychiatric exam: Normal Affect - Skin Skin Exam: Dry, Warm Discharge Plan - Follow Up Plan Condition: GOOD Disposition: REHAB FACILITY/REHAB UNIT Patient education suggested?: Yes Instructions: Total Hip Replacement (DC) Referrals: Jeremiah Alarcon III, MD [Primary Care Provider] -
[2017-01-28 19:54] VITALS: BP 102/62; PULSE 97; RESP 18; TEMP 100; O2SAT 96
== END 2017-01-28 19:30 | DRG 470 ==
LOC: H.OPSURG 06:30 → H.MEDSURG1 13:00
PROVIDERS: ADMIT Internal Medicine; ATTEND Internal Medicine
PROC: 30233N1 Transfusion of Nonautologous Red Blood Cells into Peripheral Vein, Percutaneous Approach (ICD-10-PCS; 2017-01-25)
PROC: 0SRB039 Replacement of Left Hip Joint with Ceramic Synthetic Substitute, Cemented, Open Approach (ICD-10-PCS; principal; 2017-01-25 07:45)
DX: M16.12 Unilateral primary osteoarthritis, left hip (principal); D62 Acute posthemorrhagic anemia; N18.3 Chronic kidney disease, stage 3 (moderate); M06.9 Rheumatoid arthritis, unspecified; M65.852 Other synovitis and tenosynovitis, left thigh; I12.9 Hypertensive chronic kidney disease with stage 1 through stage 4 chronic kidney disease, or unspecified chronic kidney disease; Z96.653 Presence of artificial knee joint, bilateral; K21.9 Gastro-esophageal reflux disease without esophagitis; Z79.82 Long term (current) use of aspirin; Z88.6 Allergy status to analgesic agent; Z87.442 Personal history of urinary calculi; Z90.710 Acquired absence of both cervix and uterus

== ENCOUNTER 2018-06-15 06:24 | Inpatient (IN) | payer OTHER, MEDICARE ==
[2018-06-15 07:03] VITALS: BMI 28.8
[2018-06-15] MEDS ORDERED: GELATIN SPONGE,ABSORB/PORCINE 1 EACH SPONGE TP ONE (07:13)
[2018-06-15] MEDS ORDERED: Bacitracin Ointment 30 GM TUBE ONE (07:13)
[2018-06-15] MEDS ORDERED: Rocuronium 10 mg/ml (5 ml) ONE (07:14)
[2018-06-15] MEDS ORDERED: Thrombin Topical 5,000 Int Units Spray Kit ONE (07:14)
[2018-06-15] MEDS ORDERED: Etomidate 20 mg/10ml Inj IV ONE (07:14)
[2018-06-15] MEDS ORDERED: Propofol 10 mg/ml Inj (20 ML) ONE (07:14)
[2018-06-15] MEDS ORDERED: Succinylcholine 200 mg/10 ml Inj IV ONE (07:14)
[2018-06-15] MEDS ORDERED: Lidocaine 4% (Laryng-O-Jet) Kit MM ONE (07:15)
--- NOTE | 2018-06-15 07:20 | CP.PCM.HP ---
History of Present Illness - History of Present Illness History of Present Illness: 77F with painful left total knee replacement failed conservative mgmt and elected for revision total knee replacement. Primary TKR in 2001. She has also had right TKR x 4. She has had blood transfusion after each of her knee replacements. She says knee feels unstable when when walks. Denies any fever/ chills/recent illness. Denies numbness/tingling. Jacquelin hx of bleeding/clotting disorder, DVT, CVA, seizure disorder, CAD/stents Allergy to oxycodone Present on Admission - Present on Admission Any Indicators Present on Admission: No Past Patient History - Infectious Disease Hx of Infectious Diseases: None - Tetanus Immunizations Tetanus Immunization: Unknown - Past Medical History & Family History Past Medical History?: Yes Past Family History: Reviewed and not pertinent - Past Social History Smoking Status: Never Smoked - CARDIAC Hx Cardiac Disorders: Yes Hx Hypertension: Yes - PULMONARY Hx Respiratory Disorders: Yes Hx Pneumonia: Yes (1995) - NEUROLOGICAL Hx Neurological Disorder: Yes Other/Comment: TINGLING BOTH LEGS AND FEET-BETTER NOW - HEENT Hx HEENT Problems: Yes Hx Cataracts: Yes Hx Glaucoma: Yes - RENAL Hx Chronic Kidney Disease: Yes Hx Kidney Stones: Yes (LEFT) - ENDOCRINE/METABOLIC Hx Endocrine Disorders: No - HEMATOLOGICAL/ONCOLOGICAL Hx Blood Disorders: Yes Hx Anemia: Yes Hx Blood Transfusions: Yes Hx Blood Transfusion Reaction: No - INTEGUMENTARY Hx Dermatological Problems: No - MUSCULOSKELETAL/RHEUMATOLOGICAL Hx Musculoskeletal Disorders: Yes Hx Arthritis: Yes Hx Back Pain: Yes Hx Degenerative Joint Disease: Yes Hx Osteoarthritis: Yes Hx Osteomyelitis: Yes Hx Rheumatoid Arthritis: Yes Other/Comment: HX: BUNIONS -BILAT. - GASTROINTESTINAL Hx Gastrointestinal Disorders: Yes Hx Bowel Surgery: Yes (SMALL INTESTINE) Hx Gastroesophageal Reflux: Yes (GERD) Other/Comment: HX: SMALL BOWEL OBSTRUCTION - GENITOURINARY/GYNECOLOGICAL Hx Genitourinary Disorders: Yes Other/Comment: HX: HYSTERECTOMY - PSYCHIATRIC Hx Psychophysiologic Disorder: No Hx Emotional Abuse: No Hx Physical Abuse: No - SURGICAL HISTORY Hx Surgeries: Yes Hx Hysterectomy: Yes (1989) Hx Joint Replacement: Yes (BOTH KNEE REPLACEMENT/ LEFT TOTAL HIP) Hx Musculoskeletal Surgery: Yes (BILATERAL BUNION Sx) Other/Comment: Small Intestine Obstruction and Surgery 1996. REMOVAL LEFT KIDNEY STONE (LASER TX.). Bilat TKR , REVISION RIGHT KNEE X3. INSERTION CANDIDO CATH AND REMOVAL - ANESTHESIA Hx Anesthesia: Yes Hx Anesthesia Reactions: No Hx Malignant Hyperthermia: No Meds Allergies/Adverse Reactions: Allergies Allergy/AdvReac Type Severity Reaction Status Date / Time oxycodone HCl [From Percocet] AdvReac PALPITAION Verified 01/22/17 13:36 GRAVY AdvReac DIARRHEA Uncoded 01/22/17 13:37 Physical Exam - Constitutional Appears: Well, No Acute Distress - Head Exam Head Exam: ATRAUMATIC - Respiratory Exam Respiratory Exam: NORMAL BREATHING PATTERN - Cardiovascular Exam Additional comments: +DP/PT pulses - Expanded Lower Extremities Exam Left Knee exam: normal inspection (well healed incision, no erythema, painful ROM, calves soft NT neghomans, sensation intact) - Neurological Exam Neurological exam: Alert, Oriented x3 - Psychiatric Exam Psychiatric exam: Normal Affect, Normal Mood - Skin Skin Exam: Dry, Intact, Normal Color, Warm Results - Vital Signs Recent Vital Signs: Last Vital Signs Temp 98.4 F 06/15/18 07:07 Pulse 90 06/15/18 07:11 Resp 20 06/15/18 07:07 BP 161/84 H 06/15/18 07:07 Pulse Ox 97 06/15/18 07:07 - Labs Result Diagrams: 06/15/18 07:30 Assessment & Plan (1) Painful total knee replacement, left Assessment and Plan: for revision TKR NPO T&C labs reviewed medical clearance on chart, appreciated d/w DR. Alarcon, agrees with above Status: Acute
[2018-06-15] MEDS ORDERED: Ropivacaine 0.5% 30ML IV ONE (07:22)
[2018-06-15] MEDS ORDERED: Phenylephrine 10 mg/ml Inj ONE (07:23)
[2018-06-15] MEDS ORDERED: Tranexamic Acid 1,000 MG in Sodium Chloride 0.9% 100 ML IVPB STA (07:26)
[2018-06-15] MEDS ORDERED: Tranexamic Acid 1,000 MG in Sodium Chloride 0.9% 100 ML IVPB SCH (07:30)
[2018-06-15] MEDS ORDERED: Neostigmine 1:1000 (1 mg/ml) Inj ONE (07:38)
[2018-06-15 07:56] LABS: SQUAMOUS EPITHIAL < 1 /hpf (0-5); URINE BILIRUBIN NEGATIVE (NEGATIVE); URINE BLOOD NEGATIVE (NEGATIVE); URINE CLARITY CLEAR (Clear); URINE COLOR YELLOW (YELLOW); URINE GLUCOSE (UA) NEG (Normal); URINE LEUKOCYTE ESTERASE TRACE Leu/uL (Negative); URINE PROTEIN NEGATIVE (NEGATIVE); URINE UROBILINOGEN 0.2-1.0 mg/dL (0.2-1.0)
[2018-06-15 08:00] LABS: BASO % 0.4 % (0.0-2.0); EOS # 0.1 K/uL (0.0-0.7); EOS % 1.2 % (0.0-4.0); HEMOGLOBIN 12.2 g/dL (12.0-16.0); LYMPH # 0.9 K/uL (1.0-4.3); LYMPH % 19.4 % (20.0-40.0); MEAN CELL VOLUME 82.6 fl (81.0-99.0); MEAN CORPUSCULAR HEMOGLOBIN 27.3 pg (27.0-31.0); MEAN CORPUSCULAR HGB CONC 33.1 g/dL (33.0-37.0); MEAN PLATELET VOLUME 8.8 fl (7.2-11.7); MONO # 0.4 K/uL (0.0-0.8); MONO % 8.7 % (0.0-10.0); NEUT # 3.2 K/uL (1.8-7.0); NEUT % 70.3 % (50.0-75.0); RBC 4.48 Mil/uL (3.80-5.20); RED CELL DISTRIBUTION WIDTH 16.2 % (11.5-14.5); WHITE BLOOD COUNT 4.6 K/uL (4.8-10.8)
[2018-06-15 08:04] LABS: PROTHROMBIN TIME 11.6 Seconds (9.8-13.1)
[2018-06-15] MEDS ORDERED: Lactated Ringer's 1,000 ML IV ONE ×2 (08:05→12:10)
[2018-06-15 08:07] LABS: PARTIAL THROMBOPLASTIN TIME 35.7 Seconds (25.6-37.1)
[2018-06-15] MEDS ORDERED: Lidocaine 4% MPF 5 ML IJ ONE (08:10)
[2018-06-15] MEDS ORDERED: Sodium Chloride 0.9% 1,000 ML IV ONE ×2 (08:15→10:23)
[2018-06-15] MEDS ORDERED: ePHEDrine 50 mg/ml Inj ONE (08:44)
[2018-06-15] MEDS ORDERED: Dexamethasone 4 mg/1 ml ONE (08:54)
[2018-06-15 09:30] LABS: FLUID TYPE SYNOVIAL FLUID
[2018-06-15 10:56] LABS: SF GROSS APPEARANCE BLOODY (CLEAR)
[2018-06-15] MEDS ORDERED: Desflurane Inhalation Anesthetic Liq (240 ml) ONE (11:12)
[2018-06-15 11:18] LABS: SYNOVIAL FLUID MONO/MACROPHAGE 69 % (0-0)
[2018-06-15] MEDS ORDERED: DiphenhydrAMINE 50 mg/ml Inj IVP PRN (12:20)
--- NOTE | 2018-06-15 12:25 | PCM.ANESB3 ---
Femoral Nerve Block - Femoral Nerve Block Date of Procedure: 06/15/18 Anesthesiologist: Medardo Sanchez Pre-Procedure Diagnosis: left knee revision Procedure Performed: Femoral Nerve Block Left - Procedure Femoral Nerve Block: The procedure was explained to the patient that it is for the post-operative pain management. Consent was obtained after a thorough discussion with the patient regarding the benefits and possible complications of local anesthetic block of the femoral nerve at the inguinal crease area. The patient was brought to the operating room and standard monitors were applied. Time-out was held with the circulating nurse to confirm the correct surgery and the appropriate block. After applying oxygen by nasal cannula and administering IV Sedation, patient was placed in supine position with fully extended lower extremities and the _left groin exposed. The femoral artery was then carefully palpated. The ultrasound transducer was then applied to this area in the transverse plane and the femoral nerve was visualized lateral to the femoral artery and underneath the fascia iliaca. After thorough identification, the inguinal crease area was prepped with Betadine solution three times and 1 % Lidocaine was injected subcutaneously for topical anesthesia. At this point, a #22 gauge Stimuplex 2-inch needle was inserted immediately lateral to the femoral artery pulse at the inguinal crease and advanced perpendicularly. The needle was inserted to the ultrasound transducer in-plane towards the femoral nerve in a [id number] direction. Needle advancement was performed carefully under direct ultrasound visualization. Nerve stimulator was used and twitch of the quadriceps muscle was obtained at current of _0.3____ MA. After negative aspiration, __5___cc of __0.5___% ____ropiv was injected and this was followed with _25 cc of __0.5 % __ropiv____ . Under ultrasound guidance the local anesthetics were observed spreading below fascia iliaca and around the femoral nerve. The needle was removed intact and sterile dressing was applied. The patient had stable vital signs, was conscious and in no apparent distress. The patient tolerated the femoral nerve block well with stable vital signs and was prepared for subsequent surgery.
[2018-06-15] MEDS ORDERED: HYDROmorphone 1 mg/ml ISec ONE ×4 (12:27→13:32)
--- NOTE | 2018-06-15 12:28 | PCM.ANESB2 ---
Popliteal Nerve Block - Popliteal Nerve Block Date of Procedure: 06/15/18 Anesthesiologist: Medardo youngblood Pre-Procedure Diagnosis: left knee revision Procedure Performed: Popliteal Nerve Block Left - Procedure Popliteal Nerve Block: This procedure was explained to the patient that it is for post-operative pain management. Consent was obtained after a thorough discussion with the patient regarding the benefits and possible complications of local anesthetic block of the sciatic nerve at the popliteal level. The patient was brought to the operating room and standard monitors are applied. Time-out was held with the circulating nurse to confirm the correct surgery and the appropriate block. After applying oxygen by nasal cannula and administering IV Sedation, patient's operative leg was gently raised and supported and the groove in between the biceps femoris and vastus lateralis muscles was carefully palpated. The skin approximately 8cm above the popliteal crease was then marked. The ultrasound transducer was then applied to the posterior thigh approximately 8cm above the popliteal crease in the transverse plane and the sciatic nerve before its division was visualized lateral to the popliteal artery and in between the bicep femoris and semimembranosus/semitendinosus muscles. After identification, the lateral portion of the thigh was prepped with Betadine solution three times and Lidocaine 1% was injected subcutaneously for topical anesthesia. At this point, a # 21 gauge Stimuplex insulated 4 inch needle was inserted into pre-marked area and advanced in a perpendicular direction. The needle was inserted above the ultrasound transducer in-plane towards the sciatic nerve in a [id number] direction. Needle advancement was performed carefully under direct ultrasound visualization. Nerve stimulator was used and dorsiflexion of the _left____ foot was elicited at a current of _0.3____ MA. After repeated negative aspiration, _5____cc of __0.5___ % ___ropiv was injected and this was flowed with __15____ cc of __0.5____% ___ropiv . Under ultrasound guidance the local anesthetics were observed surrounding sciatic nerve . The needle was removed intact and sterile dressing was applied. The patient tolerated the popliteal nerve block well with stable vital signs and was subsequently prepared for the surgery.
--- NOTE | 2018-06-15 13:19 | RAD ---
Date of service: 06/15/2018 PROCEDURE: Left Knee Radiographs. HISTORY: Pain. COMPARISON: None. FINDINGS: BONES: Left total knee recent arthroplasty components and postop changes are noted. Alignment physiologic appearing Tibial components cemented JOINTS: Tibial plateau intrinsic osteoarthritis changes noted. JOINT EFFUSION: Present OTHER FINDINGS: None. IMPRESSION: Status post total knee recent arthroplasty - anatomical alignment. Normal postop expectant changes Tibial plateau intrinsic osteoarthritis changes noted.
[2018-06-15] MEDS ORDERED: ceFAZolin 2 GM in Sodium Chloride 0.9% 100 ML IVPB SCH (17:00)
[2018-06-15] MEDS ORDERED: ceFAZolin IV 2 gm in Dextrose 2 GM/50 ML BAG IVPB SCH (17:00)
--- NOTE | 2018-06-15 18:51 | CP.PCM.HP ---
History of Present Illness - History of Present Illness History of Present Illness: This is a 77F with painful left total knee replacement failed conservative mgmt and elected for revision total knee replacement. Primary TKR in 2001. She has also had right TKR x 4. She has had blood transfusion after each of her knee replacements. She says knee feels unstable when when walks. Denies any fever/ chills/recent illness. Denies numbness/tingling. She failed outpatient conservative management and underwent Left TKR. The patient was seen s/p left TKR revision today and states that she is doing well postoperatively and that her pain is controlled. Jacquelin hx of bleeding/clotting disorder, DVT, CVA, seizure disorder, CAD/stents Allergy to oxycodone Present on Admission - Present on Admission Any Indicators Present on Admission: No History of DVT/PE: No History of Uncontrolled Diabetes: No Review of Systems - Review of Systems Review of Systems: A 12 point review of systems was conducted and found to be negative other than what was mentioned in the HPI. Past Patient History - Infectious Disease Hx of Infectious Diseases: None - Tetanus Immunizations Tetanus Immunization: Unknown - Past Medical History & Family History Past Medical History?: Yes Past Family History: Reviewed and not pertinent - Past Social History Smoking Status: Never Smoked - CARDIAC Hx Cardiac Disorders: Yes Hx Hypertension: Yes - PULMONARY Hx Respiratory Disorders: Yes Hx Pneumonia: Yes (1995) - NEUROLOGICAL Hx Neurological Disorder: Yes Other/Comment: TINGLING BOTH LEGS AND FEET-BETTER NOW - HEENT Hx HEENT Problems: Yes Hx Cataracts: Yes Hx Glaucoma: Yes - RENAL Hx Chronic Kidney Disease: Yes Hx Kidney Stones: Yes (LEFT) - ENDOCRINE/METABOLIC Hx Endocrine Disorders: No - HEMATOLOGICAL/ONCOLOGICAL Hx Blood Disorders: Yes Hx Anemia: Yes Hx Blood Transfusions: Yes Hx Blood Transfusion Reaction: No - INTEGUMENTARY Hx Dermatological Problems: No - MUSCULOSKELETAL/RHEUMATOLOGICAL Hx Musculoskeletal Disorders: Yes Hx Arthritis: Yes Hx Back Pain: Yes Hx Degenerative Joint Disease: Yes Hx Osteoarthritis: Yes Hx Osteomyelitis: Yes Hx Rheumatoid Arthritis: Yes Other/Comment: HX: BUNIONS -BILAT. - GASTROINTESTINAL Hx Gastrointestinal Disorders: Yes Hx Bowel Surgery: Yes (SMALL INTESTINE) Hx Gastroesophageal Reflux: Yes (GERD) Other/Comment: HX: SMALL BOWEL OBSTRUCTION - GENITOURINARY/GYNECOLOGICAL Hx Genitourinary Disorders: Yes Other/Comment: HX: HYSTERECTOMY - PSYCHIATRIC Hx Psychophysiologic Disorder: No Hx Emotional Abuse: No Hx Physical Abuse: No - SURGICAL HISTORY Hx Surgeries: Yes Hx Hysterectomy: Yes (1989) Hx Joint Replacement: Yes (BOTH KNEE REPLACEMENT/ LEFT TOTAL HIP) Hx Musculoskeletal Surgery: Yes (BILATERAL BUNION Sx) Other/Comment: Small Intestine Obstruction and Surgery 1996. REMOVAL LEFT KIDNEY STONE (LASER TX.). Bilat TKR , REVISION RIGHT KNEE X3. INSERTION CANDIDO CATH AND REMOVAL - ANESTHESIA Hx Anesthesia: Yes Hx Anesthesia Reactions: No Hx Malignant Hyperthermia: No Meds Allergies/Adverse Reactions: Allergies Allergy/AdvReac Type Severity Reaction Status Date / Time oxycodone HCl [From Percocet] AdvReac PALPITAION Verified 01/22/17 13:36 GRAVY AdvReac DIARRHEA Uncoded 01/22/17 13:37 Physical Exam - Additional Findings Additional findings: Physical exam: Constitutional- cooperative, awake, alert Head- NCAT, PERRL Eye- PERRL, EOMI ENT- normal exam, MMM. Neck- normal inspection, supple, no JVD Respiratory- CTAB, no wheezes rales rhonchi Cardiovascular- RRR, +S1, +S2 no MRG GI/Abdominal- normal bowel sounds, soft, no mass, no hsm Skin- warm, dry Extremities Exam- Limited ROM left lower extremity. normal capillary refill, normal inspection Neurological Exam- alert, awake, oriented Psych- normal mood, normal affect Results - Vital Signs Recent Vital Signs: Last Vital Signs Temp 98.1 F 06/15/18 16:12 Pulse 69 06/15/18 16:12 Resp 19 06/15/18 16:12 BP 156/75 H 06/15/18 16:12 Pulse Ox 99 06/15/18 16:12 - Labs Result Diagrams: 06/15/18 07:30 Labs: Laboratory Results - last 24 hr 06/14/18 06/15/18 06/15/18 07:30 07:30 07:30 WBC 4.6 L RBC 4.48 Hgb 12.2 D Hct 37.0 MCV 82.6 MCH 27.3 MCHC 33.1 RDW 16.2 H Plt Count 235 MPV 8.8 Neut % (Auto) 70.3 Lymph % (Auto) 19.4 L Andrews % (Auto) 8.7 Eos % (Auto) 1.2 Baso % (Auto) 0.4 Neut # (Auto) 3.2 Lymph # (Auto) 0.9 L Andrews # (Auto) 0.4 Eos # (Auto) 0.1 Baso # (Auto) 0.0 PT 11.6 INR 1.0 APTT 35.7 Urine Color Yellow Urine Clarity Clear Urine pH 6.0 Ur Specific [place] 1.015 Urine Protein Negative Urine Glucose (UA) Neg Urine Ketones Negative Urine Blood Negative Urine Nitrate Negative Urine Bilirubin Negative Urine Urobilinogen 0.2-1.0 Ur Leukocyte Esterase Trace Urine RBC (Auto) 1 Urine Microscopic WBC 5 Ur Squamous Epith Cells < 1 Fluid Type Synovial WBC Synovial RBC Synovial Neutrophils Synovial Lymphocytes Synov Monos/Macrophage Synovial Fluid Comment Blood Type Antibody Screen Crossmatch BBK History Checked 06/15/18 06/15/18 07:30 09:10 WBC RBC Hgb Hct MCV MCH MCHC RDW Plt Count MPV Neut % (Auto) Lymph % (Auto) Andrews % (Auto) Eos % (Auto) Baso % (Auto) Neut # (Auto) Lymph # (Auto) Andrews # (Auto) Eos # (Auto) Baso # (Auto) PT INR APTT Urine Color Urine Clarity Urine pH Ur Specific [place] Urine Protein Urine Glucose (UA) Urine Ketones Urine Blood Urine Nitrate Urine Bilirubin Urine Urobilinogen Ur Leukocyte Esterase Urine RBC (Auto) Urine Microscopic WBC Ur Squamous Epith Cells Fluid Type Synovial fluid Synovial WBC 1040.0 H Synovial RBC 240.0 H Synovial Neutrophils 0.0 Synovial Lymphocytes 31.0 H Synov Monos/Macrophage 69 H Synovial Fluid Comment Blood Type O POSITIVE Antibody Screen Negative Crossmatch See Detail BBK History Checked Patient has bt Assessment & Plan - Assessment and Plan (Free Text) Plan: This is a 77F with painful left total knee replacement failed conservative mgmt and elected for revision total knee replacement. Primary TKR in 2001. She has also had right TKR x 4. She has had blood transfusion after each of her knee replacements. She says knee feels unstable when when walks. Denies any fever/ chills/recent illness. Denies numbness/tingling. She failed outpatient conservative management and underwent Left TKR. The patient was seen s/p left TKR revision today and states that she is doing well postoperatively and that her pain is controlled. 1.s/p left TKR revision s/p Total left knee replacement POD #0- by Dr Rivas currently on PRODUCTION CONTROL CLERK pump PT/OT eval appreciated . f/u cultures 2.Primary osteoarthritis involving multiple joints History bilateral knee replacements left hip replacement, now s/p revision of left knee replacement 3. CKD (chronic kidney disease) stage 3, GFR 30-59 ml/min Chronic, stable GFR=51 hx of Renal stones and surgery to remove stone f/u bmp in AM 5. HTN (hypertension) Chronic, controlled on HCTZ and Avapro at home Resume Avapro on discharge and hold HCTZ (6) DVT prophylaxis Acute SCDs
[2018-06-15] MEDS: Lactated Ringer's 1,000 ML IV SCH (20:55)
[2018-06-15] MEDS: ceFAZolin 2 GM in Sodium Chloride 0.9% 100 ML IVPB SCH (20:55)
[2018-06-15] MEDS: Docusate-Senna 50 mg-8.6 mg Tab PO SCH (21:03)
[2018-06-16] MEDS: ceFAZolin 2 GM in Sodium Chloride 0.9% 100 ML IVPB SCH ×2 (04:27→14:16)
[2018-06-16 06:19] LABS: HEMOGLOBIN 11.1 g/dL (12.0-16.0); MEAN CELL VOLUME 82.7 fl (81.0-99.0); MEAN CORPUSCULAR HEMOGLOBIN 26.7 pg (27.0-31.0); MEAN CORPUSCULAR HGB CONC 32.3 g/dL (33.0-37.0); RBC 4.18 Mil/uL (3.80-5.20); RED CELL DISTRIBUTION WIDTH 16.3 % (11.5-14.5); WHITE BLOOD COUNT 6.9 K/uL (4.8-10.8)
[2018-06-16 07:32] LABS: BLOOD UREA NITROGEN 29 mg/dl (7-17); CALCIUM 9.1 mg/dL (8.4-10.2); GFR NON-AFRICAN AMERICAN 54
[2018-06-16] MEDS: Lactated Ringer's 1,000 ML IV SCH ×2 (08:41→15:10)
[2018-06-16] MEDS: Enoxaparin 40 mg Syringe SC SCH (08:42)
[2018-06-16] MEDS: Multivitamin With Minerals Tab PO SCH (08:45)
--- NOTE | 2018-06-16 16:09 | CP.PCM.PN ---
Subjective - Date & Time of Evaluation Date of Evaluation: 06/16/18 Time of Evaluation: 10:00 - Subjective Subjective: Patient seen and examined today. C/o of pain this morning. Dilaudid GANG DRILL OPERATOR pump now discontinued however. HD stable, NAD. Hg 11.1 No new complaints. Objective - Vital Signs/Intake and Output Vital Signs (last 24 hours): Temp Pulse Resp BP Pulse Ox 97.9 F 76 20 129/73 97 06/16/18 15:51 06/16/18 15:51 06/16/18 15:51 06/16/18 15:51 06/16/18 15:51 Intake and Output: 06/16/18 06/16/18 06:59 18:59 Intake Total 375 Balance 375 - Medications Medications: Current Medications Acetaminophen (Tylenol 325mg Tab) 975 mg PO Q6 [facility] Last Admin: 06/16/18 09:42 Dose: 975 mg Amlodipine Besylate (Norvasc) 10 mg PO DAILY [facility] Last Admin: 06/16/18 08:44 Dose: 10 mg Cyclobenzaprine HCl (Flexeril) 10 mg PO DAILY PRN PRN Reason: Leg cramps Diphenhydramine HCl (Benadryl) 25 mg IVP Q6 PRN PRN Reason: Itching / Pruritus Last Admin: 06/16/18 10:24 Dose: 25 mg Enoxaparin Sodium (Lovenox) 40 mg SC DAILY [facility] PRN Reason: Protocol Last Admin: 06/16/18 08:42 Dose: 40 mg Ferrous Sulfate (Feosol) 325 mg PO BID [facility] Last Admin: 06/16/18 08:40 Dose: 325 mg Folic Acid (Folic Acid) 1 mg PO DAILY [facility] Last Admin: 06/16/18 08:41 Dose: 1 mg Lactated Ringer's (Lactated Ringer's) 1,000 mls @ 75 mls/hr IV .[id number] [facility] Last Admin: 06/16/18 15:10 Dose: Not Given Losartan Potassium (Cozaar) 100 mg PO DAILY [facility] Last Admin: 06/16/18 08:45 Dose: 100 mg Morphine Sulfate (Morphine) 2 mg IVP Q4 PRN PRN Reason: Pain, severe (8-10) Last Admin: 06/16/18 14:13 Dose: 2 mg Multivitamins/Minerals (Therapeutic-M Tab) 1 tab PO DAILY [facility] Last Admin: 06/16/18 08:45 Dose: 1 tab Ondansetron HCl (Zofran Inj) 4 mg IVP ONCE PRN PRN Reason: Nausea/Vomiting Ondansetron HCl (Zofran Inj) 4 mg IVP Q8 PRN PRN Reason: Nausea/Vomiting Oxycodone HCl (Oxycodone Immediate Release Tab) 10 mg PO Q4 PRN PRN Reason: Pain, moderate (4-7) Senna/Docusate Sodium (Senokot S 50 Mg-8.6 Mg) 2 tab PO HS PRATEEK Last Admin: 06/15/18 21:03 Dose: Not Given - Labs Labs: 06/16/18 05:10 06/16/18 05:10 PT 11.6 Seconds (9.8-13.1) 06/15/18 07:30 INR 1.0 06/15/18 07:30 APTT 35.7 Seconds (25.6-37.1) 06/15/18 07:30 - Additional Findings Additional findings: Physical exam: Constitutional- cooperative, awake, alert Head- NCAT, PERRL Eye- PERRL, EOMI ENT- normal exam, MMM. Neck- normal inspection, supple, no JVD Respiratory- CTAB, no wheezes rales rhonchi Cardiovascular- RRR, +S1, +S2 no MRG GI/Abdominal- normal bowel sounds, soft, no mass, no hsm Skin- warm, dry Extremities Exam- Limited ROM left lower extremity. normal capillary refill, normal inspection Neurological Exam- alert, awake, oriented Psych- normal mood, normal affect Assessment and Plan - Assessment and Plan (Free Text) Plan: This is a 77F with painful left total knee replacement failed conservative mgmt and elected for revision total knee replacement. Primary TKR in 2001. She has also had right TKR x 4. She has had blood transfusion after each of her knee replacements. She says knee feels unstable when when walks. Denies any fever/ chills/recent illness. Denies numbness/tingling. She failed outpatient conservative management and underwent Left TKR. The patient was seen s/p left TKR revision today and states that she is doing well postoperatively and that her pain is controlled. 1.s/p left TKR revision s/p Total left knee replacement POD #1- by Dr Rivas GANG DRILL OPERATOR pump d/c this morning, now on IV morphine PT/OT eval appreciated . f/u cultures 2.Primary osteoarthritis involving multiple joints History bilateral knee replacements left hip replacement, now s/p revision of left knee replacement 3. CKD (chronic kidney disease) stage 3, GFR 30-59 ml/min Chronic, stable GFR=51 hx of Renal stones and surgery to remove stone 5. HTN (hypertension) Chronic, controlled on HCTZ and Avapro at home Resume Avapro on discharge and hold HCTZ (6) DVT prophylaxis Acute SCDs
--- NOTE | 2018-06-16 16:24 | PCM.SURG1 ---
Surgeon's Initial Post Op Note - Surgeon's Notes Surgeon: Agnes Wrong Address Clerk: 1st assist B Stock/ 2nd assit Joleen Sheridan Type of Anesthesia: General Endo, Block [facility] Pre-Operative Diagnosis: aseptic lossening TKR (L). hemmorhagic synovitis. posterior capsular contracture. lateral patella contracture Operative Findings: aseptic loosening L TKR. hemmorhagic synovitis. posterior capsular contracture. lateral patella contracture Post-Operative Diagnosis: aseptic loosening L TKR. posterior capsdular contracture. lateral patella contracture. tricompartmnetal hemmorghaic synovitis Operation Performed: Revision L TKR. explant 3 total knee componenets. \ anterior and posterior synovectomy. posterior capsuylar release. lateral patella release. computer navigation Specimen/Specimens Removed: synovits/loosened total knee components Estimated Blood Loss: EBL {In ML}: 125 Blood Products Given: N/A Drains Used: No Drains Post-Op Condition: Good Date of Surgery/Procedure: 06/16/18 Time of Surgery/Procedure: 09:05 (time in room/ anesthesia indcution time 8:05)
--- NOTE | 2018-06-16 17:15 | CP.PCM.PN ---
Subjective - Date & Time of Evaluation Date of Evaluation: 06/16/18 Time of Evaluation: 07:30 - Subjective Subjective: Patient seen and examined at bedside. Pain is moderate, despite ASSOCIATE DIRECTOR pump. Patient notes that she has taken percocet in the past which has controlled her pain without any adverse reactions. No acute events overnight. Objective - Vital Signs/Intake and Output Vital Signs (last 24 hours): Temp Pulse Resp BP Pulse Ox 97.9 F 76 20 129/73 97 06/16/18 15:51 06/16/18 15:51 06/16/18 15:51 06/16/18 15:51 06/16/18 15:51 Intake and Output: 06/16/18 06/16/18 06:59 18:59 Intake Total 375 Balance 375 - Medications Medications: Current Medications Acetaminophen (Tylenol 325mg Tab) 975 mg PO Q6 [facility] Last Admin: 06/16/18 16:14 Dose: 975 mg Amlodipine Besylate (Norvasc) 10 mg PO DAILY [facility] Last Admin: 06/16/18 08:44 Dose: 10 mg Cyclobenzaprine HCl (Flexeril) 10 mg PO DAILY PRN PRN Reason: Leg cramps Diphenhydramine HCl (Benadryl) 25 mg IVP Q6 PRN PRN Reason: Itching / Pruritus Last Admin: 06/16/18 10:24 Dose: 25 mg Enoxaparin Sodium (Lovenox) 40 mg SC DAILY [facility] PRN Reason: Protocol Last Admin: 06/16/18 08:42 Dose: 40 mg Ferrous Sulfate (Feosol) 325 mg PO BID [facility] Last Admin: 06/16/18 16:15 Dose: 325 mg Folic Acid (Folic Acid) 1 mg PO DAILY [facility] Last Admin: 06/16/18 08:41 Dose: 1 mg Lactated Ringer's (Lactated Ringer's) 1,000 mls @ 75 mls/hr IV .[id number] [facility] Last Admin: 06/16/18 15:10 Dose: Not Given Losartan Potassium (Cozaar) 100 mg PO DAILY [facility] Last Admin: 06/16/18 08:45 Dose: 100 mg Morphine Sulfate (Morphine) 2 mg IVP Q4 PRN PRN Reason: Pain, severe (8-10) Last Admin: 06/16/18 14:13 Dose: 2 mg Multivitamins/Minerals (Therapeutic-M Tab) 1 tab PO DAILY [facility] Last Admin: 06/16/18 08:45 Dose: 1 tab Ondansetron HCl (Zofran Inj) 4 mg IVP ONCE PRN PRN Reason: Nausea/Vomiting Ondansetron HCl (Zofran Inj) 4 mg IVP Q8 PRN PRN Reason: Nausea/Vomiting Oxycodone HCl (Oxycodone Immediate Release Tab) 10 mg PO Q4 PRN PRN Reason: Pain, moderate (4-7) Senna/Docusate Sodium (Senokot S 50 Mg-8.6 Mg) 2 tab PO HS [facility] Last Admin: 06/15/18 21:03 Dose: Not Given - Labs Labs: 06/16/18 05:10 06/16/18 05:10 PT 11.6 Seconds (9.8-13.1) 06/15/18 07:30 INR 1.0 06/15/18 07:30 APTT 35.7 Seconds (25.6-37.1) 06/15/18 07:30 - Extremities Exam Additional comments: L knee: Knee imm in place, dressings CDI sensation intact SP/DP/TN motor intact EHL/FHL/TA/G pedal pulses intact comps soft NT Assessment and Plan (1) Painful total knee replacement, left Assessment & Plan: POD#1 s/p L revision TKA -pain control, will switch to oxycodone and morphine since the patient does not have a true allergy to oxycodone -Knee imm and CPM as per order -PT/OT FWB -DVT ppx -discharge planning for tomorrow -above d/w Dr. Alarcon in agreement Status: Acute
[2018-06-16] MEDS: oxyCODONE 10 mg Immediate Release Tab PO PRN (17:31)
[2018-06-16] MEDS: Docusate-Senna 50 mg-8.6 mg Tab PO SCH (21:55)
[2018-06-17] MEDS: oxyCODONE 10 mg Immediate Release Tab PO PRN ×6 (00:34→21:33)
--- NOTE | 2018-06-17 02:30 | OP ---
Copied To: Jeremiah Alarcon MD Attending MD: Jeremiah Alarcon MD PROCEDURE DATE: 06/15/2018 LOCATION: [facility]. PREOPERATIVE DIAGNOSIS: Painful loosened left total knee replacement. POSTOPERATIVE DIAGNOSES: 1. Aseptic loosening left total knee replacement. 2. Hemorrhagic synovitis tricompartmental 3. Posterior capsular contracture. 4. Lateral patellar retinacular contracture and the aforementioned hemorrhagic synovitis. OPERATIVE FINDINGS: As above. PROCEDURES: 1. Revision left total knee replacement. 2. Removal/explant three total knee components. 4. Extensive anterior and posterior synovectomy. 5. Posterior capsular release. 6. Lateral patellar retinacular release. 7. Computer navigation. SURGEON: Jeremiah Alarcon MD RETAIL SUPPORT SPECIALIST: Montez Ross PA-C SECOND STAFF PHYSICIAN: ALICIA Carolina SPECIMENS REMOVED: 1. Severe hemorrhagic synovitis. 2. Loosened total knee components. The aspirate is sent down for number of white cells per high-power field on Gram stain and bacteria. No bacteria were found. Less than five white blood cells per high-power field. ESTIMATED BLOOD LOSS: 125 mL. BLOOD PRODUCTS: No blood products given. DRAINS: No drains. POSTOPERATIVE CONDITION: Good/stable. TIME OF THE PROCEDURE: Time in the room, anesthesia induction time 08:05, surgical time 09:05. OPERATIVE INDICATION: Sudhir Castillo is a 77-year-old woman well known to my practice who sustained an injury at work approximately 13 to 15 years ago. The patient unfortunately as a result of that injury underwent total knee replacement arthroplasty. The patient has had loosening of the total knee replacement which was caused by the original work-related injury. Worker's compensation authorization has been obtained since this complication with time is aseptic loosening of the total knee replacement directly related to the work-related injury initially that caused total knee replacement. Pros, cons, risks, and benefits of revision total knee replacement arthroplasty were discussed. The possibility of mechanical failure, infection, thromboembolic disease, possibility of secondary or tertiary surgery was discussed. The patient can no longer withstand the discomfort and wished the surgery to be accomplished. The possibility of nerve injury, leg-length inequality, stiffness, mechanical failure, infection, thromboembolic disease, secondary or tertiary surgery was discussed. OPERATIVE PROCEDURE: After having obtained informed consent in the above fashion, after the satisfactory induction of general endotracheal and regional block anesthesia by Dr. Sanchez, the patient identified as Sudhir Castillo in the supine position with all bony prominence well padded. The left lower extremity was prepped and free draped in the usual fashion for lower extremity surgery. The tourniquet had been applied, but was not yet inflated. After having obtained informed consent, after having identified side, site, and procedure and a critical pause/time-out after the satisfactory induction of the anesthetic, the patient identified as Sudhir Castillo in the supine position with all bony prominences well padded. The left lower extremity was prepped and free draped in the usual fashion for lower extremity surgery. After exsanguinating the limb using a 6-inch Esmarch bandage, tourniquet which had been applied is inflated to 350 mmHg. The initial incision which was well healed was extended two fingerbreadths proximally and two fingerbreadths distally, and ellipse of skin was removed. Skin and subcutaneous tissue and muscle was removed. This having been accomplished, a dissection is carried out exposing the medial lateral patellar retinaculum. There was found to be a contracture of the lateral patellar retinaculum. A medial arthrotomy was accomplished. Dissection was carried around posteromedially to the direct head of the semimembranosus tendon. A portion of the patellar ligament was elevated. The patella was everted. The knee is flexed. There was found to be evidence on arthrotomy a gush of blood and severe hemorrhagic synovitis, which was noted in the suprapatellar pouch and in the medial lateral patellar retinaculum. An extensive synovectomy was accomplished anteriorly. The patella was everted. There was found to be hemorrhagic synovitis on the inferior or posterior aspect of the quadriceps tendon expansion, especially in the area of the patella. This exuberant synovitis was removed. A partial synovectomy was accomplished, and anterior femoral synovectomy was accomplished as well. The tibia was dislocated anteriorly. The iliotibial band insertion of the lateral aspect of the femur was released and removal of the tibial component was initiated by removing the tibial polyethylene from the Stu component. This having been accomplished, the interface between the tibial tray and the patella is developed using the oscillating saw. Using the Accu-Drive, the tibial plate is elevated. The tibial plate is elevated as the Accu-Drive is developed the interface between the cement and the tibial plate circumferentially. This having been accomplished, the tibia was removed. The cement mantle was found to be intact. A great deal of time was taken at this point in time with the high-speed bur to remove the cement from the tibial canal. This having been accomplished, the tibia was placed below the femur, and attention was to the femoral component, which was loose. Again, the interface between the femoral component and the cement is developed using the oscillating saw and the TTS saw. This was further developed with the Accu-Drive. At this point in time, the femoral component which was loose was removed with loss of minimum amount of bone. Prior to removing the femoral component using the Exactech measurement device, the anterior femur was marked for the position of the joint line. The femoral component was removed. At this point in time, computer navigation commences for the alignment of the tibia. This having been accomplished, the anterior tibial strut for the KneeAlign device was placed on the anterior aspect of the tibia. This having been accomplished, the sensor was applied, and the accelerometer is applied. This having been accomplished, the offset of the device is set to where the posterior insertion of the anterior cruciate ligament would be. This having been accomplished, the offset is thus defined, the device having been affixed to the anterior aspect of the tibia computer navigation commences. The medial malleolus is registered. The lateral malleolus was registered and this having been accomplished, the medial and lateral malleoli having been registered, the initial cut is set to 0 degrees varus-valgus and 0 degrees of posterior slope. The stylus was set to 2 mm of depth of cut and the tibial osteotomy was accomplished. At this point in time, the wafer bone was removed. All contractures were defined. The lateral patellar retinacular contracture was defined and a careful lateral patellar retinacular release is accomplished from outside in. Hemostasis controlled with electrocautery and the Aquamantys device. This having been accomplished, there was found to be a posterior capsular contracture and the posterior capsule was released up to the posterior aspect of the femur. This having been accomplished, the posterior aspect of the femur was released. The tibia having been dislocated anteriorly, the femur is thus prepared. The intramedullary canal was found with the bur. The alignment device is set to 2 degrees of valgus with the joint line being set at the previous marking with the Exactech measurement device. The distal femoral cutting guide was affixed, and the distal femoral cut on the lateral aspect distally is 10 mm, 5 mm medially. The #3 block was affixed along the epicondylar axis, and anterior and posterior osteotomies were accomplished as well as chamfer cuts. At this point in time, again the lamina glazier helper was placed. The posterior capsular contracture was identified, tensed and the posterior capsule was released. A careful posterior synovectomy was accomplished as well. Again, there was evidence of a hemorrhagic synovitis, which is still in evidence. The wound was thoroughly irrigated. At this point in time, the femoral box is cut for the #3 revision femoral component, and at this point in time, the proximal tibia was prepared with a #3 tibial tray. Guidance to rotation of the lateral aspect of the tibial condyle, mid malleolar axis and medial third of the tibial tuberosity. Reaming was accomplished with the 80 mm stem. This having been accomplished, the reaming having been accomplished, trialling was accomplished with the stemmed femoral component as the femoral canal had been reamed and the opening to 18 mm. The femoral stem having been introduced, the tibial stem having been introduced, the 26-mm polyethylene insert is trialed. Flexion/extension balance was found to be excellent. Attention was turned to the patella. The initial patella was removed, so the femoral component, the tibial component, tibial polyethylene, and the patellar component are removed. The patella buttons were removed. A planar patellar cut was accomplished, reaming was accomplished for 38 mm patella. Flexion/extension balance was found to be acceptable and excellent. Patellar balance was found to be excellent as well. The wounds were thoroughly irrigated. The femur, tibia and patella were prepared and the #4 stemmed femoral component was employed. The #3 stemmed tibial component was employed. They are both cemented with meticulous technique. The 26 mm tibial polyethylene was implanted. The 38-mm patella was cemented as well. Again, flexion/extension balance was found to be excellent. Patella balance was found to be excellent as well. At this point in time, the tourniquet was deflated. Hemostasis controlled with the Aquamantys. Synovectomy is completed. Anterior and posterior osteotomies were having been completed and size of the components having been correctly accomplished, the wound was thoroughly irrigated. Closures in layers, #2 FiberWire for the arthrotomy followed by 0 Vicryl, 2-0 Vicryl followed by 2-0 Quill, 0 Vicryl, 2-0 Vicryl and yayo for skin. Meticulous hemostasis had been accomplished, and no drain was employed. Franko Burgos compression dressing and knee immobilizers applied. The operation could not have been performed without the first assistantship of VERO, Montez Ross, and nursing airplane first officer, Juliana Sheridan. SUMMARY: 1. Revision total knee replacement arthroplasty. 2. Removal of three total knee components. 3. Anterior and posterior synovectomy. 4. Posterior capsular release. 5. Lateral patellar retinacular release. 6. Excision of skin and subcutaneous tissue and some muscle. 7. Computer navigation. Jeremiah Alarcon MD
[2018-06-17 06:13] LABS: MEAN CELL VOLUME 82.5 fl (81.0-99.0); MEAN CORPUSCULAR HEMOGLOBIN 26.9 pg (27.0-31.0); MEAN CORPUSCULAR HGB CONC 32.6 g/dL (33.0-37.0); RBC 4.07 Mil/uL (3.80-5.20); RED CELL DISTRIBUTION WIDTH 16.2 % (11.5-14.5); WHITE BLOOD COUNT 7.4 K/uL (4.8-10.8)
[2018-06-17 06:50] LABS: BLOOD UREA NITROGEN 19 mg/dl (7-17); CALCIUM 9.3 mg/dL (8.4-10.2); GFR NON-AFRICAN AMERICAN > 60
[2018-06-17] MEDS: Lactated Ringer's 1,000 ML IV SCH (07:30)
[2018-06-17] MEDS: Multivitamin With Minerals Tab PO SCH (08:47)
[2018-06-17] MEDS: Enoxaparin 40 mg Syringe SC SCH (08:47)
[2018-06-17] MEDS ORDERED: Povidone Iodine Topical 10% Sol ONE (09:53)
--- NOTE | 2018-06-17 10:47 | CP.PCM.PN ---
Subjective - Date & Time of Evaluation Date of Evaluation: 06/17/18 Time of Evaluation: 10:45 - Subjective Subjective: Patient states pain is controlled, improving. Denies CP/SOB/dizziness/n/v/ numbness/tingling. Donna PT well Objective - Vital Signs/Intake and Output Vital Signs (last 24 hours): Temp Pulse Resp BP Pulse Ox 97.5 F L 80 19 143/80 99 06/17/18 07:48 06/17/18 07:48 06/17/18 07:48 06/17/18 07:48 06/17/18 07:48 - Medications Medications: Current Medications Acetaminophen (Tylenol 325mg Tab) 975 mg PO Q6 [facility] Last Admin: 06/17/18 09:28 Dose: 975 mg Amlodipine Besylate (Norvasc) 10 mg PO DAILY [facility] Last Admin: 06/16/18 08:44 Dose: 10 mg Cyclobenzaprine HCl (Flexeril) 10 mg PO DAILY PRN PRN Reason: Leg cramps Diphenhydramine HCl (Benadryl) 25 mg IVP Q6 PRN PRN Reason: Itching / Pruritus Last Admin: 06/16/18 10:24 Dose: 25 mg Enoxaparin Sodium (Lovenox) 40 mg SC DAILY [facility] PRN Reason: Protocol Last Admin: 06/17/18 08:47 Dose: 40 mg Ferrous Sulfate (Feosol) 325 mg PO BID [facility] Last Admin: 06/17/18 08:47 Dose: 325 mg Folic Acid (Folic Acid) 1 mg PO DAILY [facility] Last Admin: 06/17/18 08:48 Dose: 1 mg Lactated Ringer's (Lactated Ringer's) 1,000 mls @ 75 mls/hr IV .[id number] [facility] Last Admin: 06/17/18 07:30 Dose: Not Given Losartan Potassium (Cozaar) 100 mg PO DAILY [facility] Last Admin: 06/17/18 08:47 Dose: 100 mg Morphine Sulfate (Morphine) 2 mg IVP Q4 PRN PRN Reason: Pain, severe (8-10) Last Admin: 06/16/18 14:13 Dose: 2 mg Multivitamins/Minerals (Therapeutic-M Tab) 1 tab PO DAILY [facility] Last Admin: 06/17/18 08:47 Dose: 1 tab Ondansetron HCl (Zofran Inj) 4 mg IVP ONCE PRN PRN Reason: Nausea/Vomiting Ondansetron HCl (Zofran Inj) 4 mg IVP Q8 PRN PRN Reason: Nausea/Vomiting Oxycodone HCl (Oxycodone Immediate Release Tab) 10 mg PO Q4 PRN PRN Reason: Pain, moderate (4-7) Last Admin: 06/17/18 08:47 Dose: 10 mg Senna/Docusate Sodium (Senokot S 50 Mg-8.6 Mg) 2 tab PO HS [facility] Last Admin: 06/16/18 21:55 Dose: 2 tab - Labs Labs: 06/17/18 05:45 06/17/18 05:45 PT 11.6 Seconds (9.8-13.1) 06/15/18 07:30 INR 1.0 06/15/18 07:30 APTT 35.7 Seconds (25.6-37.1) 06/15/18 07:30 - Extremities Exam Additional comments: Left knee: +ROM ankle/toes, sensation intact, calves soft NT neg homans +DP/PT pulses, incision intact, no drainage, no erythema Assessment and Plan (1) Painful total knee replacement, left Assessment & Plan: POD#2 s/p rvision left TKR -d/c planning to [facility] stable for d/c to rehab cont PT/OT VTE proph knee immob at night d/w Dr. Alarcon, agrees with above Status: Acute
--- NOTE | 2018-06-17 16:36 | CP.PCM.PN ---
Subjective - Date & Time of Evaluation Date of Evaluation: 06/17/18 Time of Evaluation: 09:30 - Subjective Subjective: Patient seen and examined bedside. Feeling better . Pain is controlled Hemodynamically stable, afebrile No acute issues overnight. Objective - Vital Signs/Intake and Output Vital Signs (last 24 hours): Temp Pulse Resp BP Pulse Ox 98.8 F 81 20 124/76 97 06/17/18 16:14 06/17/18 16:14 06/17/18 16:14 06/17/18 16:14 06/17/18 16:14 - Medications Medications: Current Medications Acetaminophen (Tylenol 325mg Tab) 975 mg PO Q6 [facility] Last Admin: 06/17/18 16:19 Dose: 975 mg Amlodipine Besylate (Norvasc) 10 mg PO DAILY [facility] Last Admin: 06/17/18 11:17 Dose: 10 mg Cyclobenzaprine HCl (Flexeril) 10 mg PO DAILY PRN PRN Reason: Leg cramps Diphenhydramine HCl (Benadryl) 25 mg IVP Q6 PRN PRN Reason: Itching / Pruritus Last Admin: 06/16/18 10:24 Dose: 25 mg Enoxaparin Sodium (Lovenox) 40 mg SC DAILY [facility] PRN Reason: Protocol Last Admin: 06/17/18 08:47 Dose: 40 mg Ferrous Sulfate (Feosol) 325 mg PO BID [facility] Last Admin: 06/17/18 16:19 Dose: 325 mg Folic Acid (Folic Acid) 1 mg PO DAILY [facility] Last Admin: 06/17/18 08:48 Dose: 1 mg Lactated Ringer's (Lactated Ringer's) 1,000 mls @ 75 mls/hr IV .[id number] [facility] Last Admin: 06/17/18 07:30 Dose: Not Given Losartan Potassium (Cozaar) 100 mg PO DAILY [facility] Last Admin: 06/17/18 08:47 Dose: 100 mg Morphine Sulfate (Morphine) 2 mg IVP Q4 PRN PRN Reason: Pain, severe (8-10) Last Admin: 06/16/18 14:13 Dose: 2 mg Multivitamins/Minerals (Therapeutic-M Tab) 1 tab PO DAILY [facility] Last Admin: 06/17/18 08:47 Dose: 1 tab Ondansetron HCl (Zofran Inj) 4 mg IVP ONCE PRN PRN Reason: Nausea/Vomiting Ondansetron HCl (Zofran Inj) 4 mg IVP Q8 PRN PRN Reason: Nausea/Vomiting Oxycodone HCl (Oxycodone Immediate Release Tab) 10 mg PO Q4 PRN PRN Reason: Pain, moderate (4-7) Last Admin: 06/17/18 16:21 Dose: 10 mg Senna/Docusate Sodium (Senokot S 50 Mg-8.6 Mg) 2 tab PO HS [facility] Last Admin: 06/16/18 21:55 Dose: 2 tab - Labs Labs: 06/17/18 05:45 06/17/18 05:45 PT 11.6 Seconds (9.8-13.1) 06/15/18 07:30 INR 1.0 06/15/18 07:30 APTT 35.7 Seconds (25.6-37.1) 06/15/18 07:30 - Constitutional Appears: Non-toxic, No Acute Distress - Head Exam Head Exam: ATRAUMATIC, NORMOCEPHALIC - Eye Exam Eye Exam: EOMI, PERRL Pupil Exam: NORMAL ACCOMODATION - ENT Exam ENT Exam: Mucous Membranes Moist, Normal Exam - Neck Exam Neck Exam: Full ROM, Normal Inspection - Respiratory Exam Respiratory Exam: Clear to Ausculation Bilateral, NORMAL BREATHING PATTERN. absent: Rales, Wheezes - Cardiovascular Exam Cardiovascular Exam: REGULAR RHYTHM, RRR, +S1, +S2. absent: JVD - GI/Abdominal Exam GI & Abdominal Exam: Soft, Normal Bowel Sounds. absent: Distended, Guarding, Tenderness, Rebound - Rectal Exam Rectal Exam: Deferred - Extremities Exam Extremities Exam: Normal Capillary Refill, Normal Inspection Additional comments: Left knee dressing and immobilizer in place - Back Exam Back Exam: NORMAL INSPECTION - Neurological Exam Neurological Exam: Alert, Awake, CN II-XII Intact, Oriented x3 - Psychiatric Exam Psychiatric exam: Normal Affect, Normal Mood - Skin Skin Exam: Dry, Intact, Normal Color, Warm Assessment and Plan - Assessment and Plan (Free Text) Assessment: 77 F with painful left total knee replacement failed conservative management and elected for revision total knee replacement. Primary TKR in 2001. She has also had right TKR x 4. She has had blood transfusion after each of her knee replacements. She says knee feels unstable when walks. Denies any fever/chills/ recent illness. Denies numbness/tingling. She failed outpatient conservative management and underwent Left TKR. 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 f/u cultures 2.Primary osteoarthritis involving multiple joints History bilateral knee replacements left hip replacement, now s/p revision of left knee replacement 3. CKD (chronic kidney disease) stage 3, GFR 30-59 ml/min Chronic, stable GFR=51 hx of Renal stones and surgery to remove stone 4. HTN (hypertension) Chronic, controlled on HCTZ and Avapro at home 5. Mild anemia of acute blood loss stable on ferrous sulfate 6. DVT prophylaxis Acute SCDs, lovenox
[2018-06-17] MEDS: Docusate-Senna 50 mg-8.6 mg Tab PO SCH (21:34)
[2018-06-17 23:49] VITALS: O2SAT 95
[2018-06-18] MEDS: oxyCODONE 10 mg Immediate Release Tab PO PRN (08:21)
[2018-06-18] MEDS: Multivitamin With Minerals Tab PO SCH (08:24)
--- NOTE | 2018-06-18 08:24 | CP.PCM.DIS ---
Provider - Provider Date of Admission: 06/15/18 10:17 Attending physician: Mirza Martinez DO Primary care physician: Jeremiha Alarcon III, MD Consults: ortho consult Time Spent in preparation of Discharge (in minutes): 15 Hospital Course - Lab Results Lab Results: Micro Results 06/15/18 14:30 Knee - Left Gram Stain - Final 06/15/18 14:30 Knee - Left Wound Culture - Preliminary No growth. 06/15/18 14:30 Knee - Left Gram Stain - Final 06/15/18 14:30 Knee - Left Anaerobic Culture - Final NO ANAEROBES ISOLATED. 06/15/18 14:30 Knee - Left Wound Culture - Preliminary No growth. 06/15/18 09:10 Body Fluid - Knee-Left Gram Stain - Final 06/15/18 09:10 Body Fluid - Knee-Left Anaerobic Culture - Final NO ANAEROBES ISOLATED. 06/15/18 09:10 Body Fluid - Knee-Left Body Fluid Culture - Preliminary NO GROWTH AFTER 2 DAYS 06/15/18 14:30 Knee - Left Wound Culture - Preliminary No growth. 06/15/18 14:30 Knee - Left Gram Stain - Final 06/15/18 14:30 Knee - Left Wound Culture - Preliminary No growth. 06/15/18 14:30 Knee - Left Gram Stain - Final 06/15/18 14:30 Knee - Left Wound Culture - Preliminary No growth. 06/15/18 14:30 Knee - Left Gram Stain - Final 06/15/18 14:30 Knee - Left Wound Culture - Preliminary No growth. 06/15/18 14:30 Knee - Left Gram Stain - Final 06/15/18 14:30 Knee - Left Wound Culture - Preliminary No growth. 06/15/18 14:30 Knee - Left Gram Stain - Final 06/15/18 14:30 Knee - Left Wound Culture - Preliminary No growth. 06/15/18 14:30 Knee - Left Gram Stain - Final 06/15/18 14:30 Knee - Left Wound Culture - Preliminary No growth. 06/15/18 14:30 Knee - Left Gram Stain - Final 06/15/18 14:30 Knee - Left Wound Culture - Preliminary No growth. 06/15/18 14:30 Knee - Left Gram Stain - Final 06/15/18 14:30 Knee - Left Wound Culture - Preliminary No growth. 06/15/18 14:30 Knee - Left Gram Stain - Final 06/15/18 14:30 Knee - Left Wound Culture - Preliminary No growth. 06/15/18 14:30 Knee - Left Gram Stain - Final 06/15/18 14:30 Knee - Left Wound Culture - Preliminary No growth. 06/15/18 14:30 Knee - Left Gram Stain - Final 06/15/18 14:30 Knee - Left Wound Culture - Preliminary No growth. 06/15/18 14:30 Knee - Left Gram Stain - Final 06/15/18 14:30 Knee - Left Wound Culture - Preliminary No growth. 06/15/18 14:30 Knee - Left Gram Stain - Final 06/15/18 14:30 Knee - Left Wound Culture - Preliminary No growth. 06/15/18 09:10 Other: Please Indicate Mycobacterial Culture - Preliminary Most Recent Lab Values WBC 7.4 K/uL (4.8-10.8) 06/17/18 05:45 RBC 4.07 Mil/uL (3.80-5.20) 06/17/18 05:45 Hgb 11.0 g/dL (12.0-16.0) L 06/17/18 05:45 Hct 33.6 % (34.0-47.0) L 06/17/18 05:45 MCV 82.5 fl (81.0-99.0) 06/17/18 05:45 MCH 26.9 pg (27.0-31.0) L 06/17/18 05:45 MCHC 32.6 g/dL (33.0-37.0) L 06/17/18 05:45 RDW 16.2 % (11.5-14.5) H 06/17/18 05:45 Plt Count 218 K/uL (130-400) 06/17/18 05:45 MPV 8.8 fl (7.2-11.7) 06/15/18 07:30 Neut % (Auto) 70.3 % (50.0-75.0) 06/15/18 07:30 Lymph % (Auto) 19.4 % (20.0-40.0) L 06/15/18 07:30 Arroyo % (Auto) 8.7 % (0.0-10.0) 06/15/18 07:30 Eos % (Auto) 1.2 % (0.0-4.0) 06/15/18 07:30 Baso % (Auto) 0.4 % (0.0-2.0) 06/15/18 07:30 Neut # (Auto) 3.2 K/uL (1.8-7.0) 06/15/18 07:30 Lymph # (Auto) 0.9 K/uL (1.0-4.3) L 06/15/18 07:30 Arroyo # (Auto) 0.4 K/uL (0.0-0.8) 06/15/18 07:30 Eos # (Auto) 0.1 K/uL (0.0-0.7) 06/15/18 07:30 Baso # (Auto) 0.0 K/uL (0.0-0.2) 06/15/18 07:30 PT 11.6 Seconds (9.8-13.1) 06/15/18 07:30 INR 1.0 06/15/18 07:30 APTT 35.7 Seconds (25.6-37.1) 06/15/18 07:30 Sodium 134 mmol/l (132-148) 06/17/18 05:45 Potassium 4.2 MMOL/L (3.6-5.0) 06/17/18 05:45 Chloride 101 mmol/L (98-107) 06/17/18 05:45 Carbon Dioxide 25 mmol/L (22-30) 06/17/18 05:45 Anion Gap 12 (10-20) 06/17/18 05:45 BUN 19 mg/dl (7-17) H 06/17/18 05:45 Creatinine 0.9 mg/dl (0.7-1.2) 06/17/18 05:45 Est GFR ( Amer) > 60 06/17/18 05:45 Est GFR (Non-Af Amer) > 60 06/17/18 05:45 Random Glucose 107 mg/dL (65-105) H 06/17/18 05:45 Calcium 9.3 mg/dL (8.4-10.2) 06/17/18 05:45 Urine Color Yellow (YELLOW) 06/14/18 07:30 Urine Clarity Clear (Clear) 06/14/18 07:30 Urine pH 6.0 (5.0-8.0) 06/14/18 07:30 Ur Specific [place] 1.015 (1.003-1.030) 06/14/18 07:30 Urine Protein Negative mg/dL (NEGATIVE) 06/14/18 07:30 Urine Glucose (UA) Neg mg/dL (Normal) 06/14/18 07:30 Urine Ketones Negative mg/dL (NEGATIVE) 06/14/18 07:30 Urine Blood Negative (NEGATIVE) 06/14/18 07:30 Urine Nitrate Negative (NEGATIVE) 06/14/18 07:30 Urine Bilirubin Negative (NEGATIVE) 06/14/18 07:30 Urine Urobilinogen 0.2-1.0 mg/dL (0.2-1.0) 06/14/18 07:30 Ur Leukocyte Esterase Trace Ashutosh/uL (Negative) 06/14/18 07:30 Urine RBC (Auto) 1 /hpf (0-3) 06/14/18 07:30 Urine Microscopic WBC 5 /hpf (0-5) 06/14/18 07:30 Ur Squamous Epith Cells < 1 /hpf (0-5) 06/14/18 07:30 Fluid Type Synovial fluid 06/15/18 09:10 Synovial WBC 1040.0 /mm3 (0.0-150.0) H 06/15/18 09:10 Synovial RBC 240.0 /mm3 (0.0-0.0) H 06/15/18 09:10 Synovial Neutrophils 0.0 % (0-0) 06/15/18 09:10 Synovial Lymphocytes 31.0 % (0-0) H 06/15/18 09:10 Synov Monos/Macrophage 69 % (0-0) H 06/15/18 09:10 Synovial Fluid Comment 06/15/18 09:10 Blood Type O POSITIVE 06/15/18 07:30 Antibody Screen Negative 06/15/18 07:30 Crossmatch See Detail 06/15/18 07:30 BBK History Checked Patient has bt 06/15/18 07:30 - Hospital Course Hospital Course: 77 F with painful left total knee replacement failed conservative management and elected for revision total knee replacement. Primary TKR in 2001. She has also had right TKR x 4. She has had blood transfusion after each of her knee replacements. She says knee feels unstable when walks. Denies any fever/chills/ recent illness. Denies numbness/tingling. She failed outpatient conservative management and underwent Left TKR. Today post left TKR # 3 doing well , hemodynamically stable Will d/c to [facility] for PT 1.s/p left TKR revision s/p Total left knee replacement POD #3- by Dr Rivas cleraed by nigel for d/.c to [facility] PT/OT eval appreciated . Will d/c to [facility] continue pain management 2.Primary osteoarthritis involving multiple joints History bilateral knee replacements left hip replacement, now s/p revision of left knee replacement 3. CKD (chronic kidney disease) stage 3, GFR 30-59 ml/min Chronic, stable GFR=51 hx of Renal stones and surgery to remove stone 4. HTN (hypertension) Chronic, controlled on HCTZ and Avapro at home 5. Mild anemia of acute blood loss stable on ferrous sulfate 6. DVT prophylaxis Acute SCDs, lovenox Discharge Exam - Head Exam Head Exam: ATRAUMATIC, NORMOCEPHALIC - Eye Exam Eye Exam: EOMI, Normal appearance, PERRL Pupil Exam: NORMAL ACCOMODATION - ENT Exam ENT Exam: Mucous Membranes Moist, Normal Exam - Neck Exam Neck exam: Full Rom, Normal Inspection - Respiratory Exam Respiratory Exam: Clear to PA & Lateral, NORMAL BREATHING PATTERN. absent: Rales, Rhonchi, Wheezes - Cardiovascular Exam Cardiovascular Exam: REGULAR RHYTHM, RRR, +S1, +S2. absent: JVD - GI/Abdominal Exam GI & Abdominal Exam: Normal Bowel Sounds, Soft. absent: Distended, Guarding, Rebound - Rectal Exam Rectal Exam: Deferred - Extremities Exam Extremities exam: pedal pulses present Additional comments: left knee dressing and immobilizer in place - Back Exam Back exam: NORMAL INSPECTION - Neurological Exam Neurological exam: Alert, CN II-XII Intact, Oriented x3 - Psychiatric Exam Psychiatric exam: Normal Affect - Skin Skin Exam: Dry, Warm Discharge Plan - Follow Up Plan Condition: GOOD Disposition: TRANSF TO SNF Patient education suggested?: Yes Instructions: Total Knee Replacement (DC), Nerve Blocks Referrals: Jeremiah Alarcon III, MD [Primary Care Provider] -
[2018-06-18] MEDS: Enoxaparin 40 mg Syringe SC SCH (08:25)
[2018-06-18 08:46] VITALS: BP 131/78; PULSE 88; RESP 20; TEMP 99.6
--- NOTE | 2018-06-18 13:44 | CP.PCM.PN ---
Subjective - Date & Time of Evaluation Date of Evaluation: 06/18/18 Time of Evaluation: 13:15 - Subjective Subjective: S - no complaints;pt with minmal post op discomfort Objective - Vital Signs/Intake and Output Vital Signs (last 24 hours): Temp Pulse Resp BP Pulse Ox 99.6 F 88 20 131/78 95 06/18/18 08:45 06/18/18 08:45 06/18/18 08:45 06/18/18 08:45 06/18/18 08:45 - Labs Labs: 06/17/18 05:45 06/17/18 05:45 PT 11.6 Seconds (9.8-13.1) 06/15/18 07:30 INR 1.0 06/15/18 07:30 APTT 35.7 Seconds (25.6-37.1) 06/15/18 07:30 - Additional Findings Additional findings: Objective systemic- s/p recent cataract surgery Musculoskekltal wound benign orthopedially stable Assessment and Plan - Assessment and Plan (Free Text) Assessment: A- s/p complex Rveisio n TKR P orthopeicallys stable for transfer
== END 2018-06-18 13:41 | DRG 467 ==
LOC: H.OPSURG 06:24 → H.MEDSURG1 10:17 → H.OPSURG 15:48
PROVIDERS: ADMIT Internal Medicine; ATTEND Internal Medicine
PROC: 0SND0ZZ Release Left Knee Joint, Open Approach (ICD-10-PCS; 2018-06-15)
PROC: 8E0YXBZ Computer Assisted Procedure of Lower Extremity (ICD-10-PCS; 2018-06-15)
PROC: 3E0T3BZ Introduction of Anesthetic Agent into Peripheral Nerves and Plexi, Percutaneous Approach (ICD-10-PCS; 2018-06-15)
PROC: 3E0T3BZ Introduction of Anesthetic Agent into Peripheral Nerves and Plexi, Percutaneous Approach (ICD-10-PCS; 2018-06-15)
PROC: 0SRD0J9 Replacement of Left Knee Joint with Synthetic Substitute, Cemented, Open Approach (ICD-10-PCS; principal; 2018-06-15 07:45)
PROC: 0SBD0ZZ Excision of Left Knee Joint, Open Approach (ICD-10-PCS; 2018-06-15 07:45)
PROC: 0SPD0JZ Removal of Synthetic Substitute from Left Knee Joint, Open Approach (ICD-10-PCS; 2018-06-15 07:45)
DX: T84.84XA Pain due to internal orthopedic prosthetic devices, implants and grafts, initial encounter (principal); D62 Acute posthemorrhagic anemia; Z96.642 Presence of left artificial hip joint; Z96.653 Presence of artificial knee joint, bilateral; N18.3 Chronic kidney disease, stage 3 (moderate); I12.9 Hypertensive chronic kidney disease with stage 1 through stage 4 chronic kidney disease, or unspecified chronic kidney disease; T84.033A Mechanical loosening of internal left knee prosthetic joint, initial encounter; M65.9 Synovitis and tenosynovitis, unspecified; M24.562 Contracture, left knee; Y79.2 Prosthetic and other implants, materials and accessory orthopedic devices associated with adverse incidents; Y83.1 Surgical operation with implant of artificial internal device as the cause of abnormal reaction of the patient, or of later complication, without mention of misadventure at the time of the procedure